=== PATIENT | male | born 1940 | race Caucasian/White ===

== ENCOUNTER 2017-04-16 09:31 | Observation (INO) | payer MEDICARE ==
[2017-04-16] MEDS ORDERED: Aspirin Low Dose CHEW TAB* 81 MG PO ONE (09:43)
[2017-04-16 10:00] LABS: Hematocrit 48 % (42-52); Hemoglobin 15.9 g/dl (14.0-18.0); Mean Corpuscular HGB Conc 33 g/dl (31-36); Mean Corpuscular Hemoglobin 31 pg (27-31); Mean Corpuscular Volume 94 fL (80-94); Mean Platelet Volume 8 um3 (7.4-10.4); Red Blood Count 5.12 10^6/ul (4.0-5.4); Red Cell Distribution Width 13 % (10.5-15); White Blood Count 10.6 10^3/ul (3.5-10.8)
[2017-04-16] MEDS: Nitroglycerin TAB 0.4 MG* 0.4 MG TAB SL ONE ×2 (10:08→10:15)
--- NOTE | 2017-04-16 10:11 | RAD ---
Indication: Chest pain. Single frontal view of the chest performed at 0950 hours was reviewed. Comparison is made with previous exam dated July 18, 2016. No mediastinal shift is noted. Heart is of normal size and configuration. Lung landin appear clear. IMPRESSION: NO ACTIVE CARDIOPULMONARY DISEASE IS NOTED.
[2017-04-16 10:20] LABS: Albumin 3.8 g/dL (3.2-5.2); BUN/Creatinine Ratio 15.8 (8-20); Calcium 8.9 mg/dL (8.6-10.3); EGFR African American 76.1 (>60); EGFR Non-African American 59.2 (>60); Potassium 4.3 mmol/L (3.5-5.0); Total Bilirubin 0.5 mg/dL (0.2-1.0); Total Protein 6.8 g/dL (6.4-8.9)
[2017-04-16] MEDS ORDERED: Nitroglycerin 2% OINT* 1 GM PAK TOPICAL ONE ×2 (10:23→19:09)
[2017-04-16] MEDS ORDERED: Nitroglycerin 2% OINT* 1 GM PAK ONE (10:23)
[2017-04-16] MEDS ORDERED: NS 0.9% 500 ML BAG* 500 ML IV ONE (10:25)
[2017-04-16] MEDS ORDERED: Morphine INJ* 2 MG/ML 1 ML SYRINGE IV ONE (11:08)
[2017-04-16] MEDS ORDERED: Ondansetron INJ* 2 MG/ML VIAL IV ONE (11:08)
[2017-04-16] MEDS ORDERED: Nitroglycerin TAB 0.4 MG* 0.4 MG TAB SL PRN (12:02)
[2017-04-16] MEDS: metFORMIN* 500 MG TAB PO SCH ×2 (13:51→17:50)
[2017-04-16] MEDS: Heparin VIAL(*) 5000 UNITS/ML VIAL (FIVE THOUSAND) SUBCUT SCH ×2 (13:51→22:08)
--- NOTE | 2017-04-16 18:52 | HP ---
CC: Dr. Roderick Gutierrez; Dr. Junior Adrian, Cardiology * DATE OF ADMISSION: 04/16/17 PRIMARY CARE PHYSICIAN: Dr. Roderick Gutierrez. CHIEF COMPLAINT: Chest pain. HISTORY OF PRESENT ILLNESS: Mr. Talon Langston is a 76-year-old male with past medical history of hypertension, diabetes, CAD status post 4 vessel CABG and subsequently PCI with reported 10 stents placed who presents to the hospital with chest pain. The patient states that he and his went down to [facility] on Sunday. They drove down and then Sunday night, he woke up in the middle of the night with left- sided upper chest pain. This pain was sharp and did not seem to radiate for the most part, although when it became more severe perhaps it radiated down the left arm a bit. No associated nausea, vomiting, or diaphoresis. The patient states that pain was short lasting only between 3 to 4 seconds. However, it has been very frequent since then. Frequency has been intermittent, sometimes occurring every 10 seconds or so, sometimes stretching to 10 minutes or more, but it is always brief. He did not take any nitroglycerin at home for it. He has noticed any worsening of this pain with exertion. He initially thought it was muscle pain; however, since it persisted , he spoke to Dr. Adrian's office this morning and was told to come to the hospital for further evaluation. The patient states that in the past during his episodes of ischemia, he either had shortness of breath with exertion or a burning sensation in the chest neither of which is similar to the patient's current pain. PAST MEDICAL HISTORY: Hypertension, diabetes, CAD, status post 4 vessel CABG, and multiple stents placed. PAST SURGICAL HISTORY: CABG, 4 vessel in 1993, and stents placed in 2012. HOME MEDICATIONS: 1. Aspirin 81 mg by mouth at bedtime. 2. Pravastatin 40 mg by mouth at bedtime. 3. Nitroglycerin 0.4 mg sublingual every 5 minutes as needed for angina. 4. Plavix 75 mg by mouth at bedtime. 5. Atenolol 25 mg by mouth at bedtime. 6. Metformin 500 mg by mouth 3 times daily. ALLERGIES: Denies. FAMILY HISTORY: Father who in [place]. Mother at 92 of old age. SOCIAL HISTORY: The patient is a former [id number] smoker for 25 years. He quit 27 years ago, but reports drinking about half a glass of red wine a day. Denies any illicit drug use. REVIEW OF SYSTEMS: A 12-point review of systems is negative except for that as noted in the HPI. PHYSICAL EXAMINATION GENERAL: The patient is an elderly [place] man, lying in bed, in no apparent distress. VITAL SIGNS: On admission, temperature 97.5, heart rate of 62, respiratory rate of 20, O2 saturation 94% on room air, blood pressure 144/79. HEENT: Normocephalic, atraumatic. Eyes: Pupils are equal, round and reactive to light and accommodation. Anicteric sclerae. ENT: Moist mucous membranes. No cervical adenopathy. LUNGS: The patient has some scant faint wheezing diffusely throughout the lung landin; however, good air movement. CARDIOVASCULAR: Bradycardia. No murmurs, gallops, or rubs. ABDOMEN: Nontender, and nondistended. Bowel sounds positive. No rebound or guarding. EXTREMITIES: No cyanosis, clubbing, or edema. NEUROLOGIC: The patient is alert and oriented x3. No focal neurological deficits. SKIN: Warm, dry, and well perfused. LABS AND DIAGNOSTIC: White blood cell count of 10.6, hematocrit of 48, and platelets of 244. Sodium 133, potassium 4.3, chloride of 101, carbon dioxide of 27, BUN of 19, creatinine of 1.2, glucose of 193, lactic acid of 1.1. LFTs are within normal limits. Troponin of 0.00. Chest x-ray personally reviewed shows no acute disease. EKG shows normal sinus rhythm. T-wave inversions in V2 to V3, which are unchanged from August 2016 EKG. The patient's last stress test was August 2015, which was assessed a low risk at that time. ASSESSMENT AND PLAN: Chest pain in a 76-year-old male with a past medical history of hypertension, diabetes, coronary artery disease, status post 4 vessel coronary artery bypass graft and 10 stents placement. 1. Chest pain. The pain does not seem totally consistent with a cardiac etiology, the patient states that he has had atypical presentations in the past. His initial troponin was negative. We will continue to trend this for now. Monitor the patient on telemetry. He does not have any chest pain currently. Dr. Adrian recommended getting a stress test in the morning, which is ordered. He initially had a CTA ordered by the emergency department due to his recent travel to [place]. We will hold off on this for now and we will check a d-dimer instead. We will continue the patient on his home aspirin, statin, and Plavix. 2. Diabetes. Continue home metformin. 3. Hypertension. Continue home atenolol, with hold parameters. 4. DVT prophylaxis. Heparin subcu. 5. Code status. The patient is a full code. TIME SPENT: Total time spent on this admission was 45 minutes, with over half the time spent [id number] with the patient counseling and coordinating care. [id number]/[facility] #: [id number] CHERYLE
[2017-04-16] MEDS ORDERED: Atenolol TAB* 25 MG PO SCH ×2 (21:00)
[2017-04-16] MEDS ORDERED: Clopidogrel TAB* 75 MG PO SCH (21:00)
[2017-04-16] MEDS ORDERED: Atorvastatin* 10 MG TAB PO SCH (21:00)
[2017-04-16] MEDS ORDERED: Aspirin Low Dose CHEW TAB* 81 MG PO SCH (21:00)
[2017-04-17] MEDS: Morphine INJ* 2 MG/ML 1 ML SYRINGE IV PRN ×3 (00:17→08:57)
[2017-04-17 05:16] LABS: BUN/Creatinine Ratio 14.4 (8-20); Calcium 8.5 mg/dL (8.6-10.3); EGFR African American 72.6 (>60); EGFR Non-African American 56.5 (>60); Potassium 4.5 mmol/L (3.5-5.0)
[2017-04-17] MEDS: Heparin VIAL(*) 5000 UNITS/ML VIAL (FIVE THOUSAND) SUBCUT SCH ×2 (05:38→14:19)
[2017-04-17] MEDS ORDERED: Nitro Patch/OINT Remove TOPICAL ONE (07:00)
--- NOTE | 2017-04-17 08:04 | PN ---
Subjective - Subjective Reason for Note: Progress Note History: I reviewed Mr Langston's presentation with the patient and also Dr. Shay's admitting H and P. [facility] the [facility] and developed 2 - 3/10 stabbing , transient left side chest pain. It had worsened yesterday morning and he was admitted to the hospital at the suggestion of his group underwriter Dr. Adrian. He had 7/10 pain overnight necessitating morphine. When the morphine wears off, the pain returns. He has had no nausea, vomiting, diaphoresis, radiation of the pain, light headedness or palpitations. He has a history of CABG x4 1993 and 3 years ago x 10 stents placed. He denies eating spicy food or drinking alcohol in [facility]. Active Problems: Active Problems Chest pain (Acute) R07.9 History of coronary artery stent placement (Chronic) Z95.5 Current Medications: Current Medications Aspirin (Aspirin Low Dose Tab*) 81 mg PO BEDTIME [facility] Last Admin: 04/17/17 00:28 Dose: Not Given Atenolol (Tenormin Tab*) 25 mg PO BEDTIME [facility] Last Admin: 04/17/17 00:29 Dose: Not Given Atorvastatin Calcium (Lipitor*) 10 mg PO BEDTIME [facility] PRN Reason: Protocol Last Admin: 04/16/17 20:52 Dose: 10 mg Clopidogrel Bisulfate (Plavix Tab*) 75 mg PO BEDTIME [facility] Last Admin: 04/17/17 00:29 Dose: Not Given Heparin Sodium (Porcine) (Heparin Vial(*)) 5,000 units SUBCUT Q8HR [facility] Last Admin: 04/17/17 05:38 Dose: 5,000 units Metformin HCl (Glucophage*) 500 mg PO TID WITH MEALS [facility] Last Admin: 04/16/17 17:50 Dose: 500 mg Morphine Sulfate (Morphine Inj (Syringe)*) 2 mg IV Q4H PRN PRN Reason: PAIN - MILD Last Admin: 04/17/17 04:43 Dose: 2 mg Nitroglycerin (Nitroglycerin Tab 0.4 Mg*) 0.4 mg SL Q5M PRN PRN Reason: chest pain Home Medications: Home Medications Medication Instructions Recorded Confirmed Type Atenolol TAB* [Tenormin TAB* 25 MG] 25 mg PO BEDTIME 01/30/13 04/16/17 History Aspirin Low Dose CHEW TAB* 81 mg PO BEDTIME 05/01/14 04/16/17 History [Aspirin Low Dose TAB*] Clopidogrel TAB* [Plavix TAB*] 75 mg PO BEDTIME 09/28/14 04/16/17 History metFORMIN* [Glucophage*] 500 mg PO TID 09/28/14 04/16/17 History Nitroglycerin TAB 0.4 MG* 0.4 mg SL Q5M PRN 08/23/15 04/16/17 History Pravastatin (NF) [Pravachol (NF)] 40 mg PO BEDTIME 04/16/17 04/16/17 History Allergies: Allergies Allergy/AdvReac Type Severity Reaction Status Date / Time Niacin [From [facility]] Allergy Unknown Unknown Verified 09/01/15 12:14 Reaction Details SEASONAL HAYFEVER Allergy ITCHY Uncoded 09/01/15 12:14 WATERY EYES Objective - Vital Signs Vital Signs: Vital Signs 04/16/17 04/16/17 04/16/17 11:25 11:30 12:39 Temperature Pulse Rate 45 46 Respiratory 13 17 23 Rate Blood Pressure 127/53 104/62 (mmHg) O2 Sat by Pulse 97 99 Oximetry 04/16/17 04/16/17 04/16/17 12:40 12:43 12:50 Temperature 97.9 F Pulse Rate 45 Respiratory 11 15 10 Rate Blood Pressure 114/55 (mmHg) O2 Sat by Pulse 100 Oximetry 04/16/17 04/16/17 04/16/17 13:00 13:10 13:20 Temperature Pulse Rate Respiratory 14 21 12 Rate Blood Pressure (mmHg) O2 Sat by Pulse Oximetry 04/16/17 04/16/17 04/16/17 13:30 13:40 13:50 Temperature Pulse Rate Respiratory 12 11 13 Rate Blood Pressure (mmHg) O2 Sat by Pulse Oximetry 04/16/17 04/16/17 04/16/17 14:00 14:10 14:20 Temperature Pulse Rate Respiratory 10 10 12 Rate Blood Pressure (mmHg) O2 Sat by Pulse Oximetry 04/16/17 04/16/17 04/16/17 14:30 14:40 14:50 Temperature Pulse Rate Respiratory 11 9 12 Rate Blood Pressure (mmHg) O2 Sat by Pulse Oximetry 04/16/17 04/16/17 04/16/17 15:00 15:10 15:20 Temperature Pulse Rate Respiratory 11 13 15 Rate Blood Pressure (mmHg) O2 Sat by Pulse Oximetry 04/16/17 04/16/17 04/16/17 15:30 15:40 15:48 Temperature 97.5 F Pulse Rate 46 Respiratory 14 11 12 Rate Blood Pressure 119/63 (mmHg) O2 Sat by Pulse 97 Oximetry 04/16/17 04/16/17 04/16/17 15:50 16:30 16:40 Temperature Pulse Rate Respiratory 22 11 11 Rate Blood Pressure (mmHg) O2 Sat by Pulse Oximetry 04/16/17 04/16/17 04/16/17 16:50 17:00 17:10 Temperature Pulse Rate Respiratory 9 7 11 Rate Blood Pressure (mmHg) O2 Sat by Pulse Oximetry 04/16/17 04/16/17 04/16/17 17:20 17:30 17:40 Temperature Pulse Rate Respiratory 12 30 16 Rate Blood Pressure (mmHg) O2 Sat by Pulse Oximetry 04/16/17 04/16/17 04/16/17 19:18 23:35 23:47 Temperature 97.2 F 98.1 F 98.4 F Pulse Rate 54 52 52 Respiratory 16 16 18 Rate Blood Pressure 113/62 110/53 105/48 (mmHg) O2 Sat by Pulse 97 96 95 Oximetry 04/17/17 04/17/17 04/17/17 00:17 01:17 03:34 Temperature 98.2 F Pulse Rate 48 Respiratory 18 18 16 Rate Blood Pressure 117/57 (mmHg) O2 Sat by Pulse 96 Oximetry 04/17/17 04/17/17 04:43 05:43 Temperature Pulse Rate Respiratory 16 18 Rate Blood Pressure (mmHg) O2 Sat by Pulse Oximetry - Intake and Output Intake and Output: Intake & Output 04/14/17 04/15/17 04/16/17 04/17/17 11:59 11:59 11:59 11:59 Intake Total 400 Output Total 0 Balance 400 Weight 127 lb 12.8 oz Intake: Oral 400 Output: Urine 0 Other: Estimated Void Medium # Bowel Movements 0 # Voids 0 ADLs: Meal Record Start: 04/16/17 12: 03 Freq: DAILY@0900,1400,1800 Status: Active Created 04/16/17 12:03 System (Rec: 04/16/17 12:03 System [email or web address]) Document 04/16/17 14:00 [id number] (Rec: 04/16/17 14:18 [id number] TELE-C13) Document 04/16/17 18:00 [id number] (Rec: 04/16/17 20:17 [id number] TELE-C03) Intake and Output Start: 04/16/17 09: 34 Freq: Status: Active Created 04/16/17 09:34 System (Rec: 04/16/17 09:34 System [id number]) Intake and Output Start: 04/16/17 12: 03 Freq: DAILY@0600,1400,2200 Status: Active Created 04/16/17 12:03 System (Rec: 04/16/17 12:03 System TELE-C02) Document 04/16/17 14:00 [id number] (Rec: 04/16/17 14:57 [id number] TELE-C05) Document 04/16/17 22:00 [id number] (Rec: 04/16/17 22:48 [id number] TELE-C05) Document 04/17/17 06:00 [id number] (Rec: 04/17/17 07:37 [id number] TELE-C13) - Physical Exam General Physical Exam Comment: Warm and well perfused, hemodynamically stable General: No Cyanosis, No Anemia, No Jaundice, No Clubbing Skin: Normal: Rash Lungs and Chest: Yes: Chest Expansion Full, Chest Expansion Symetrica, Percussion Note Resonant, Vessicular Breath Sounds. No: Crackles, Wheezes Heart Rate and Rhythm: Regular JVP: Not Elevated Additional Cardiovascular: Yes: Normal Heart Sounds. No: Heart Murmur, Pedal Edema Abdominal Exam: Yes: Soft, Bowel Sounds Present. No: Distention, Abdominal Mass , Hepatomegaly, Abdominal Tenderness - Extremities Cranial Nerves II-XII Intact: Yes Limbs: Normal Power, Normal Tone - Neuro Orientation: A/O x3 Speech: Normal Results - Results Lab Results: Laboratory Results - last 24 hr 04/16/17 04/16/17 04/17/17 13:12 17:57 04:57 Sodium 136 Potassium 4.5 Chloride 104 Carbon Dioxide 31 Anion Gap 1 L BUN 18 Creatinine 1.25 H Est GFR ( Amer) 72.6 Est GFR (Non-Af Amer) 56.5 BUN/Creatinine Ratio 14.4 Glucose 142 H Calcium 8.5 L Troponin I 0.00 0.01 Radiology Results: Patient Name: DARRON LANGSTON Medical Record#: [id number] Ordering Physician: Rafael Almaraz MD Acct.#: [id number] : 1940 Age: 76 Sex: M Location: EMERGENCY DEPARTMENT Exam Date: 04/16/17 0943 ADM Status: REG ER Order Information: CHEST AP PORTABLE Accession Number: [id number] CPT: 36018 Indication: Chest pain. Single frontal view of the chest performed at 0950 hours was reviewed. Comparison is made with previous exam dated July 18, 2016. No mediastinal shift is noted. Heart is of normal size and configuration. Lung landin appear clear. IMPRESSION: NO ACTIVE CARDIOPULMONARY DISEASE IS NOTED. <Electronically signed by Ivis Houston MD in OV> 04/16/17 1008 Dictated By: Ivis Houston MD Dictated Date/Time: 04/16/17 1008 Transcribed Date/Time: 04/16/17 1007 Copy to: CC:Roderick Gutierrez MD; Rafael Almaraz MD Imaging - [facility] Imaging - [place] [facility] [address] [place] [address] ph [phone]) ph ([phone]) ph ([phone]) 1 of 1 EKG Report: 12 lead EKG rate 60 LA 173 QTC 457 QRS axis 83 T wave assymetrical inversion V2 - V6, I and AVL. No pathological Q waves. ST segment normal. Anterolateral ischemia. Telemetry - sinus bradycardia Assessment - Problem List Assessment: Patient Problems Chest pain (Acute) History of coronary artery stent placement (Chronic) Allergic asthma (Chronic) Chronic kidney disease stage 2 (Chronic) Coronary arteriosclerosis (Chronic) Coronary artery bypass grafting (Chronic) Diabetes mellitus type 2 (Chronic) Essential hypertension (Chronic) Hypercholesterolemia (Chronic) Renal disorder associated with type II diabetes mellitus (Chronic) Plan: Chest pain (Acute) History of coronary artery stent placement (Chronic) Coronary arteriosclerosis (Chronic)Coronary artery bypass grafting (Chronic) He presents with chest pain that is becoming more severe and now requires morphine for control. There are no particularly symptomatic accompaniments - no radiation, diaphoresis, nausea, dysrhythmias. In the past he notes that stress tests have not been particularly revealing. I discussed this with cardiology. The plan is to perform the stress test in case it helps inform us as to the likely involved coronary artery territory. If the stress test is negative, cardiology will consult and likely will go ahead with an angiogram as the patient would prefer that approach to obtain anatomic information. He agrees with this management plan. He will need resolution of the chest pain should CAD be ruled out. I would look at the possibility of esophagitis. Diabetes mellitus type 2 (Chronic) Well controlled on metformin. I will stop this for the moment in view of the likelihood of his requiring IV contrast with a cardiac catheter. He will have FS checked qid. I will give him coverage with humalog insulin if his FS is elevated. Renal disorder associated with type II diabetes mellitus (Chronic) Chronic kidney disease stage 2 (Chronic)not exacerbated Essential hypertension (Chronic) on target - continue current Rx Hypercholesterolemia (Chronic) Statins Allergic asthma (Chronic) Not exacerbated I discussed the above with the patient and he agrees with the management.
[2017-04-17] MEDS: metFORMIN* 500 MG TAB PO SCH (08:05)
[2017-04-17] MEDS ORDERED: Dextrose 50% Syringe 50 ML* 25 GM/50 ML SYRINGE IV PUSH PRN (08:17)
--- NOTE | 2017-04-17 10:27 | ED ---
Audie Hinson Auryana, scribed for Rafael Almaraz MD on 04/16/17 at 1050 . HPI Chest Pain - HPI Summary HPI Summary: 76 year old male presents with chest pain starting 2.5 days ago. He reports that the chest pain is constant but is intermittently worse every 10-30 seconds. The pain is located in the left side of the chest and does not radiate. He denies any SOB. Patient reports that with his previous DE, he had minimal symptoms - DODSON. PMHx is significant for NSTEMI, quadruple CABG with 10 stent placement, NIDDM, and HTN. Dr. Adrian is his rn anesthesiology. 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 - History of Current Complaint Chief Complaint: EDChestPainROMI Time Seen by Provider: 04/16/17 09:43 Hx Obtained From: Patient Onset/Duration: Started Days Ago - 2.5 days ago, Still Present Timing: Constant, Intermittent - intermittently worse Initial Severity: Mild Current Severity: Mild Pain Intensity: 3 Pain Scale Used: 0-10 Numeric Chest Pain Location: Discrete at: - left side of chest Chest Pain Radiates: No Associated Signs and Symptoms: Positive: Chest Pain. Negative: Shortness of Breath Related History: Similar Episode/Dx as: - YES SEE HPI - Allergy/Home Medications Allergies/Adverse Reactions: Allergies Allergy/AdvReac Type Severity Reaction Status Date / Time Niacin [From [facility]] Allergy Unknown Unknown Verified 09/01/15 12:14 Reaction Details SEASONAL HAYFEVER Allergy ITCHY Uncoded 09/01/15 12:14 WATERY EYES Home Medications: Home Medications Pravastatin (NF) [Pravachol (NF)] 40 mg PO BEDTIME 04/16/17 [History Confirmed 04/16/17] PMH/Surg Hx/FS Hx/Imm Hx Endocrine/Hematology History: Reports: Hx Diabetes - metformin Denies: Hx Thyroid Disease, Hx Anemia Cardiovascular History: Reports: Hx Angina, Hx Coronary Artery Disease, Hx Hypercholesterolemia, Hx Hypertension Denies: Hx Pacemaker/ICD Respiratory History: Reports: Hx Asthma, Hx Chronic Bronchitis, Hx Pneumonia, Hx Seasonal Allergies, Other Respiratory Problems/Disorders - SEASONAL ALLERGIES Denies: Hx Sleep Apnea GI History: Denies: Hx Jaundice History: Reports: Other Problems/Disorders - RENAL INSUFFICIENCY Sensory History: Reports: Hx Cataracts - Had sx on left eye, Hx Contacts or Glasses Denies: Hx Eye Injury, Hx Hearing Aid Opthamlomology History: Reports: Hx Cataracts - Had sx on left eye, Hx Contacts or Glasses Denies: Hx Eye Injury Neurological History: Denies: Hx Seizures - Surgical History Surgery Procedure, Year, and Place: left cataract 2003. bypass 1993. cardiac stents Hx Anesthesia Reactions: No - Immunization History Date of Tetanus Vaccine: Unk Date of Influenza Vaccine: Fall 2012 Infectious Disease History: Reports: History Other Infectious Disease - pneumonia 2 weeks ago Denies: Hx Tuberculosis, Traveled Outside the [place] in Last 30 Days - Family History Known Family History: Negative: Cardiac Disease, Diabetes - Social History Occupation: Retired Alcohol Use: Daily Alcohol Amount: 4 oz red wine Hx Substance Use: No Substance Use Type: Reports: None Hx Tobacco Use: Yes Smoking Status (MU): Former Smoker Type: Cigarettes Amount Used/How Often: 0.5 pack per day Length of Time of Smoking/Using Tobacco: 30 Have You Smoked in the Last Year: No Review of Systems Constitutional: Negative Negative: Fever, Chills Eyes: Negative Negative: Erythema ENT: Negative Negative: Sore Throat Positive: Chest Pain Respiratory: Negative Negative: Shortness Of Breath, Cough Gastrointestinal: Negative Negative: Abdominal Pain, Vomiting, Nausea Genitourinary: Negative Positive: no symptoms reported. Negative: dysuria, hematuria Musculoskeletal: Negative Negative: Myalgia, Edema Skin: Negative Negative: Rash Neurological: Negative, Other - no dizziness Psychological: Normal All Other Systems Reviewed And Are Negative: Yes Physical Exam - Summary Physical Exam Summary: Constitutional: Well-developed, Well-nourished, Alert. (-) Distressed Skin: Warm, Dry HENT: Normocephalic; Atraumatic Eyes: Conjunctiva normal Neck: Musculoskeletal ROM normal neck. (-) JVD, (-) Stridor, (-) Tracheal deviation Cardio: Rhythm regular, rate normal, Heart sounds normal; Intact distal pulses; The pedal pulses are 2+ and symmetric. Radial pulses are 2+ and symmetric. (-) Murmur Pulmonary/Chest wall: Effort normal. (-) Respiratory distress, (-) Wheezes, (-) Rales Abd: Soft, (-) Tenderness, (-) Distension, (-) Guarding, (-) Rebound Musculoskeletal: (-) Edema Lymph: (-) Cervical adenopathy Neuro: Alert, Oriented x3 Psych: Mood and affect Normal Triage Information Reviewed: Yes Vital Signs On Initial Exam: Initial Vitals Temp Pulse Resp BP Pulse Ox 97.5 F 62 20 144/79 94 04/16/17 09:32 04/16/17 09:32 04/16/17 09:32 04/16/17 09:32 04/16/17 09:32 Vital Signs Reviewed: Yes Diagnostics - Vital Signs Vital Signs Temp Pulse Resp BP Pulse Ox 04/16/17 09:32 97.5 F 62 20 144/79 94 - Laboratory Result Diagrams: 04/16/17 09:00 04/16/17 09:00 Lab Statement: Any lab studies that have been ordered have been reviewed, and results considered in the medical decision making process. - Radiology CXR Xray Interpretation: No Acute Changes Radiology Interpretation Completed By: Radiologist - EKG 09:39 EKG Interpretation: T wave inversions in V2-V6. No STEMI. Re-Evaluation - Re-Evaluation First Eval Re-Evaluation Time: 11:05 - PAIN IS STILL A 12/01 Change: Unchanged Chest Pain Course/Dx - Course Assessment/Plan: 76 year old male presents with chest pain starting 2.5 days ago. He reports that the chest pain is constant but is intermittently worse every 10-30 seconds. The pain is located in the left side of the chest and does not radiate. He denies any SOB. Patient reports that with his previous DE, he had minimal symptoms - DODSON. PMHx is significant for NSTEMI, quadruple CABG with 10 stent placement, NIDDM, and HTN. Dr. Adrian is his rn anesthesiology. 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 Blood work shows creatinine 1.20, glucose 193, lactic acid 1.1, and troponin 0.00. D-Dimer <200. LFTs are WNL. CXR NAD. EKG T wave inversions in V2-V6. No STEMI. The case discussed the case with Dr. Adrian who recommends admission for stress test if the pain waxes and wanes. The case was discussed with Dr. Gutierrez (PCP) who also recommends admission. Dr. Shay accepts the patient for admission to [facility]. Patient is agreeable with plan. DDx ACS, reflux, muscle strain. Dx: chest pain unspecified. - Chest Pain Differential Diagnosis/HQI/PQRI: ACS, Other: - muscle strain, reflux - Diagnoses Provider Diagnoses: Chest pain, unspecified - Provider Notifications Discussed Care Of Patient With: Junior Adrian Time Discussed With Above Provider: 10:55 - if pain wax and wanes, recommends admission to hospital for stress test. Discharge - Discharge Plan Condition: Stable Disposition: ADMITTED TO [facility] The documentation as recorded by the Audie cardenas Auryana accurately reflects the service I personally performed and the decisions made by , Rafael Almaraz MD.
--- NOTE | 2017-04-17 10:54 | RAD ---
HISTORY: Chest pain, history of coronary artery disease, cardiac catheterization, diabetes COMPARISONS: August 24, 2015 TECHNIQUE: A 1 day stress/rest myocardial perfusion study was performed, with exercise stress. The exercise portion was performed using the Daniel protocol, for a total METs of 10.1. The stress portion was monitored by Dr. Woody. Gated SPECT imaging was performed, with CT-based attenuation correction DOSE: Stress: Technetium 99m tetrofosmin, 26.2 millicuries, injected at 9:50 AM on April 17, 2017 Rest: Technetium 99m tetrofosmin, 10.99 millicuries, injected at 6:25 AM on April 17, 2017 Pharmacologic agent: None FINDINGS: CARDIAC MONITORING: Peak heart rate of 140 bpm, 96% of predicted EF: 61 % TID: 1.06 MOTION: Again noted is anteroseptal hypokinesia PERFUSION: There is a small fixed apical defect. There is no reversible perfusion defect. OTHER: None IMPRESSION: 1. PERSISTENT ANTEROSEPTAL HYPOKINESIA. 2. SMALL FIXED APICAL DEFECT SUGGESTIVE OF PREVIOUS INFARCT. NO REVERSIBLE DEFECTS TO SUGGEST ISCHEMIA ASSESSMENT: LOW RISK. Based on imaging criteria from ACC/AHA 2002. Guideline Update for the Management of Patient's with Chronic Stable Angina, table 23. Noninvasive Risk Stratification.
[2017-04-17] MEDS ORDERED: Insulin LISPRO* 1 UNITS UNIT SUBCUT SCH (11:30)
[2017-04-17] MEDS ORDERED: amLODIPine TAB* 5 MG PO SCH (14:00)
--- NOTE | 2017-04-17 14:31 | PN ---
Progress Note - Progress Note Date of Service: 04/17/17 Note: The nuclear medicine stress test suggest a low risk of ischemia. I spoke with Dr. Junior Adrian - in view of the chest pain for several days and the negative troponin I/stress test - it is unlikely to be due to ischemic heart disease. I will explore the possibility of GERD as an out patient. Dr. Adrian thinks he is safe to discharge home from the cardiac point of view. I spoke to Giuliana, the RN on duty, she has walked him and he has felt well. I have therefore written discharge orders.
[2017-04-17 15:17] VITALS: BP 118/59
--- NOTE | 2017-04-17 16:02 | CONS ---
CC: Dr. Roderick Gutierrez.* CARDIOLOGY CONSULTATION: DATE OF CONSULT: 04/17/17 REASON FOR THE CONSULT: Asked by Dr. Roderick Gutierrez to assess patient known to me with atypical left-sided chest discomfort. HISTORY OF PRESENT ILLNESS: The patient is a pleasant 76-year-old gentleman with a prior known history of coronary artery disease, which will be outlined below, status post bypass surgery and multiple stents placed. According to the patient, he was in his usual state of health without any significant symptoms until this past Sunday night into Sunday. He was at his son's house in [facility]. While he was lying in bed, he believes perhaps around 12 midnight or 2 in the morning, in a lying position he woke up and felt a chest discomfort. It was focused to the upper left side of the chest with no radiation to the mid portion of the chest, no radiation across to the right side, no radiation up to the throat, jaw or up to the shoulder or arms. The description of the discomfort with a pinching, stabbing sensation that would come on for a couple of seconds, then completely go away. It would return after some time, several seconds or minutes. He stated that this would be on and off throughout the night. He did not describe having any significant shortness of breath with the discomfort. To me, he denied any significant nausea or vomiting with these episodes, any profound diaphoresis. In general, he thought they were mild in nature. He was eventually able to go to sleep, but on Sunday he woke up and found that he still had some mild episodes of this. He tried doing some stretching activity. It was not better. He tried to actually take a warm shower and it did not seem to be better with exerting himself. During this shower, he had no change to the symptoms and with him walking around within the house, had no problems. Interestingly, it was on and off throughout all of Sunday. He actually drove all the way home back up to [place] and states that when he concentrated driving , he really did not notice this symptom. He went to bed on Sunday night into Sunday and was awakened with an increased level of the discomfort, somewhat sharper perhaps as a 6-8/10, but again with that intermittent pattern of lasting a couple of seconds at a time, then completely going away, then returning. Because of the symptomatology, he ended up presenting to the emergency room. He presented to the emergency room on 04/16/17 by car arriving at 9:30 a.m. He called our office and was referred by our nurse to go to the emergency room and asked that he seek medical attention by presenting to the emergency room. The emergency room physician examined him and agreed that it was atypical in nature, but saw an EKG that had T-wave inversions in anterior leads and anterolateral leads. I was able to fax him an EKG from my office from August that showed the exact same EKG findings unchanged. The patient was subsequently admitted to the hospital and over the course of the next 24 hours had troponins that were valued at 0.00, 0.00, and 0.01. He states that while he was in the hospital, the level of symptoms actually got worse again when he was at night, sharper in nature, last night at about 12 a.m. to 1 in the morning. He received morphine for this. It got better, but became sharp again at 5 a.m. According to the patient, he got additional dosages of morphine at that time as well. Prior to going down to the stress test, he was given additional morphine. He exercised by standard Daniel protocol under Dr. Eloy Woody's observation to 9 minutes 17 seconds. He had the discomfort before even starting the stress test. Interestingly, when I spoke to him, he denied having any discomfort with the exercise. The EKG was difficult at best to assess because of baseline ST segment abnormalities and artifact on the tracings with exercise due to motion artifact. The one minute recovery EKG had upsloping ST segments that did not meet any type of criteria. Later in recovery, the ST segments became more downsloping in II, III and aVF and V4 through 6. Of note, this was still at a faster heart rate. The nuclear images showed well preserved left ventricular systolic function with an ejection fraction recorded of 61%. There was septal hypokinesis consistent with prior bypass. There was a question of a very small fixed apical defect which Radiology suggested perhaps represents a previous infarct, but overall left ventricular contractility to that area showed completely normal LV function suggesting this was more physiological thinning of the apical region. The alternative would be a very small area of ischemia at best. Nuclear portion was read as a low risk nuclear portion of the stress test. In talking more with the patient, he continued to state that he denied any specific difficulties going up and down the stairs at home provoking these very transient type of symptoms. The patient's cardiac history is extensive in nature. He is status post heart disease dating back to 1993 when he underwent bypass surgery with a NICKERSON graft to the LAD, a vein graft to the diagonal branch, a vein graft to the obtuse marginal #2 and a vein graft to the distal right coronary artery. In 2012, he had a cardiac catheterization demonstrating LAD and circumflex with severe stenosis, right coronary artery coming off from the left coronary cusp with a 60 % lesion, saphenous vein to the right totally occluded, saphenous vein graft to the diagonal totally occluded, saphenous vein to an OM widely patent and a NICKERSON widely patent. In 2013, he had significant chest discomfort for prolonged period of time and a troponin of 4 and underwent cardiac catheterization that at that time demonstrated the 100% LAD after the first septal. The circumflex was 100% closed. The right coronary artery was 100% closed. Saphenous vein to the right coronary artery was totally occluded, which was known already. Saphenous vein to the diagonal branch was 100% occluded that was known already. The saphenous vein to the obtuse marginal branch was a 100% obstructed, which was a new finding with a patent NICKERSON to the LAD, but after the insertion point, the LAD was a 75% obstruction. Of note, the right coronary artery being felt to be 100% obstructed, which actually later proved to be wrong as the right coronary artery came off from the left coronary cusp with an ectopic takeoff. As such, the presence of severe disease within the right coronary artery in addition to the LAD was noted. During the prior catheterization, a stent was placed in the ostium of the vein graft to the obtuse marginal branch. The patient subsequently then underwent intervention into the right coronary artery in [facility] by Dr. Powell with placement of 4 drug-eluting stents through the ectopic takeoff. The LAD was then intervened in May of 2014 with placement of multiple stents in the LAD back into the NICKERSON graft. As mentioned before, since that time till this past Sunday, there were no significant symptoms. 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 He has also a history of mild aortic regurgitation, hyperlipidemia, mild mitral regurgitation, and tricuspid regurgitation as well, he has type 2 diabetes. PAST SURGICAL HISTORY: Includes the coronary artery bypass surgery in 1993 as mentioned and multiple stents placed back in 2013. HOME MEDICATIONS: Included aspirin 81 mg a day, pravastatin 40 mg a day, nitroglycerin as needed, Plavix 75 mg a day, atenolol 25 mg a day, metformin 500 mg 3 times a day. ALLERGIES: No known drug allergies. FAMILY HISTORY: Noncontributory. SOCIAL HISTORY: He is a former half a pack a day smoker, but quit 27 years ago. He drinks wine half a glass a day. No illicit drugs. REVIEW OF SYSTEMS: As per the H and P with no change. PHYSICAL EXAMINATION: When I see him now, reveals a pleasant stable gentleman in no acute distress. Blood pressure 135/65 with the pulse in the 70s. Neck is supple. No increased JVP. Carotid has good upstroke and volume. There are no bruits or transmitted murmur. Conjunctivae are pink. Sclerae clear. Lungs reveal no accessory muscle usage. There is good excursion. Lungs are relatively clear to A and P. Heart reveals no visible heaves. No palpable heaves or thrills. Bradycardic rate is noted. No significant systolic or diastolic murmur. Abdomen is soft, nontender without organomegaly. Extremities are without clubbing, cyanosis, or yocasta pitting edema. Neuro: The patient alert, oriented with normal mentation. Musculoskeletal: The patient with normal gait. Psychiatric: The patient with normal affect. Of note, provocative maneuvers including pressing on the left upper chest area having him tense his left arm pushing it in different directions to see we can provoke, it failed to produce any symptom. DIAGNOSTIC STUDIES/LAB DATA: Hemoglobin and hematocrit of 15.9 and 48, platelet count of 244,000. White count 10,600. Most recent sodium 136, potassium 4.5, chloride 104, bicarb 31, BUN and creatinine 18 and 1.25. Troponin 0.00, 0.00, and 0.01. Lactic acid was 1.1. Sugar on admission was 193. Fasting sugar this morning was 142. Electrocardiogram dated 04/16/17 timed 9:39 a.m. shows sinus bradycardia, heart rate 60, normal DC, QRS and QT interval. There is a T-wave inversion seen in V2 through V6, I and aVL. Repeat EKG done this morning shows no significant change except for more bradycardic rate. OVERALL ASSESSMENT: Mr. Langston now presents with what clearly sounds like atypical chest symptoms in that they last seconds at a time with clear periods of no discomfort in between. They are focused to a spot in the left chest area without any radiation or without any significant associated type of symptoms. He denies having any type of a true burning sensation that he had with his other episodes in the past or significant shortness of breath with this. His stress test showed a fair to good exercise tolerance level without significantly worsening symptoms and with no dramatic nuclear findings to suggest even a moderate area of reversible ischemia. At this point in time, I honestly do not believe this is of an ischemic etiology. Given his current medications, we could opt to place a low dose of a calcium channel kriss such as Norvasc 2.5 mg a day to see how he fares on that and see if that has really any help in improvement. If he is stable on that medication within the next couple hours, I believe he can be discharged home with followup to my office. One other consideration knowing that these symptoms occur at night and are brief meaning seconds in nature would be if he starts developing any arrhythmic issues such as PVCs that could be escape beats if his heart rate gets too low. We will get a Holter monitor on him for 24 hours and see if we notice any significant arrhythmias that could account for this as well. As always, thank you very much for having asked me to see him. I will of course follow him along with you both in the hospital and as an outpatient. [id number]/[facility] #: [id number] CHERYLE
== END 2017-04-17 15:43 | disposition home or self-care (01) ==
LOC: ED 09:31 → MEDTELE 11:24
PROVIDERS: ADMIT Hospitalist; ATTEND Internal Medicine
DX: R07.9 Chest pain, unspecified (principal); E11.9 Type 2 diabetes mellitus without complications; I10 Essential (primary) hypertension; I25.119 Atherosclerotic heart disease of native coronary artery with unspecified angina pectoris; E78.00 Pure hypercholesterolemia, unspecified; R94.31 Abnormal electrocardiogram [ECG] [EKG]; Z79.82 Long term (current) use of aspirin; Z79.01 Long term (current) use of anticoagulants; Z79.84 Long term (current) use of oral hypoglycemic drugs; Z79.899 Other long term (current) drug therapy; Z87.891 Personal history of nicotine dependence; Z88.8 Allergy status to other drugs, medicaments and biological substances
CPT/HCPCS: 36415; 71010; 78452; 80048; 80053; 83605; 84484; 85025; 85379; 93005; 93017; 96372; 96374; 96375; 96376; 99284; A9270-GY; A9502; G0378; J1644; J2270; J2405

== ENCOUNTER 2017-04-18 20:29 | Emergency (ER) | payer MEDICARE ==
[2017-04-18] MEDS ORDERED: NS 0.9% 1000 ML* 1,000 ML IV ONE (22:47)
[2017-04-18] MEDS ORDERED: Morphine INJ* 4 MG/ML 1 ML SYRINGE IV ONE (22:47)
[2017-04-18] MEDS ORDERED: Aspirin Low Dose CHEW TAB* 81 MG PO ONE (22:47)
[2017-04-18 23:07] LABS: Hematocrit 43 % (42-52); Hemoglobin 14.2 g/dl (14.0-18.0); Mean Corpuscular HGB Conc 33 g/dl (31-36); Mean Corpuscular Hemoglobin 31 pg (27-31); Mean Corpuscular Volume 95 fL (80-94); Mean Platelet Volume 8 um3 (7.4-10.4); Red Blood Count 4.57 10^6/ul (4.0-5.4); Red Cell Distribution Width 13 % (10.5-15); White Blood Count 9.6 10^3/ul (3.5-10.8)
[2017-04-18 23:09] LABS: Comments Flag Yes
[2017-04-18 23:12] LABS: Add Diff/Slide Review? Slide Review Added
[2017-04-18 23:23] LABS: Albumin 3.4 g/dL (3.2-5.2); BUN/Creatinine Ratio 18.5 (8-20); Calcium 8.7 mg/dL (8.6-10.3); EGFR African American 76.9 (>60); EGFR Non-African American 59.8 (>60); Globulin 2.8 g/dL (2-4); Magnesium 2.1 mg/dL (1.9-2.7); Total Bilirubin 0.3 mg/dL (0.2-1.0); Total Protein 6.2 g/dL (6.4-8.9)
[2017-04-18 23:26] LABS: Potassium 4.4 mmol/L (3.5-5.0)
[2017-04-18 23:34] LABS: Eosinophils % 2 % (0-6); Immature Granulocytes 3 % (0-9); Neutrophil % 68 % (38-83); Reactive Lymph % 7 % (0-6)
[2017-04-18 23:35] LABS: RBC Morphology Normal (Normal)
[2017-04-19] MEDS ORDERED: oxyCODONE/Acetamin 5/325 MG* TAB PO ONE (02:33)
[2017-04-19 02:51] VITALS: BP 110/57
--- NOTE | 2017-04-19 05:05 | ED ---
Mikhail Hinson Alok, scribed for Augusto Madison MD on 04/18/17 at 2310 . HPI Chest Pain - HPI Summary HPI Summary: 76M presents to the ED for recurring left sided CP since 4 days ago. Pt state his CP is sharp and radiates to the left shoulder, with interment intervals lasting 10 seconds to 10 minutes constantly reoccurring every few minutes and waxing and waning in intensity. Pt states his CP is not aggravated by deep breaths or upright position. Pt was last here 2 days ago with the same CP and was admitted/released after negative stress test. Pt states his CP was alleviated with IV morphine administered at [facility]. Pt states that his CP was worst 2 days ago at a 7/10 in severity and is currently at the same pain level again. Pt denies SOB, nausea, abd pain, diaphoresis, or edema. PMHx/PSHx includes h/o NM 23 years ago with no preceding symptoms followed by quadruple bypass surgery. Pt later had 10 cardiac stents placed approximately 3 years ago following burning CP different than sharp CP today. Additional PMHx includes HTN , and Type II DM. Pt takes anticoagulant medications. - History of Current Complaint Chief Complaint: EDChestPainROMI Time Seen by Provider: 04/18/17 22:01 Hx Obtained From: Patient Onset/Duration: Started Days Ago, Atraumatic, Still Present Timing: Intermittent, Lasting Seconds, Lasting Minutes Initial Severity: Moderate Current Severity: Moderate Pain Intensity: 7 Pain Scale Used: 0-10 Numeric Chest Pain Location: Left Anterior Chest Pain Radiates: Yes Chest Pain Radiates To:: Shoulder Character: Sharp/Stabbing Aggravating Factor(s): Nothing Alleviating Factor(s): Medication - Morphine Associated Signs and Symptoms: Positive: Chest Pain. Negative: Shortness of Breath, Fever, Diaphoresis, Nausea, Abdominal Pain, Edema - Allergy/Home Medications Allergies/Adverse Reactions: Allergies Allergy/AdvReac Type Severity Reaction Status Date / Time Niacin [From Niaspan] Allergy Unknown Unknown Verified 09/01/15 12:14 Reaction Details SEASONAL HAYFEVER Allergy ITCHY Uncoded 09/01/15 12:14 WATERY EYES PMH/Surg Hx/FS Hx/Imm Hx Endocrine/Hematology History: Reports: Hx Diabetes - metformin Denies: Hx Thyroid Disease, Hx Anemia Cardiovascular History: Reports: Hx Angina, Hx Coronary Artery Disease, Hx Hypercholesterolemia, Hx Hypertension Denies: Hx Myocardial Infarction, Hx Pacemaker/ICD, Hx Valvular Heart Disease Respiratory History: Reports: Hx Asthma, Hx Chronic Bronchitis, Hx Pneumonia, Hx Seasonal Allergies, Other Respiratory Problems/Disorders - SEASONAL ALLERGIES Denies: Hx Chronic Obstructive Pulmonary Disease (COPD), Hx Sleep Apnea GI History: Denies: Hx Jaundice History: Reports: Other Problems/Disorders - RENAL INSUFFICIENCY Sensory History: Reports: Hx Cataracts - Had sx on left eye, Hx Contacts or Glasses Denies: Hx Eye Injury, Hx Hearing Aid Opthamlomology History: Reports: Hx Cataracts - Had sx on left eye, Hx Contacts or Glasses Denies: Hx Eye Injury Neurological History: Denies: Hx Seizures - Surgical History Surgery Procedure, Year, and Place: left cataract 2003. bypass 1993. cardiac stents Hx Anesthesia Reactions: No - Immunization History Date of Tetanus Vaccine: Unk Date of Influenza Vaccine: Fall 2012 Infectious Disease History: No Infectious Disease History: Reports: History Other Infectious Disease - pneumonia 2 weeks ago Denies: Hx of Known/Suspected MRSA, Hx Tuberculosis, Traveled Outside the [place] in Last 30 Days - Family History Known Family History: Negative: Cardiac Disease, Diabetes - Social History Occupation: Retired Lives: With Family Alcohol Use: Daily Alcohol Amount: 4 oz red wine Hx Substance Use: No Substance Use Type: Reports: None Hx Tobacco Use: Yes Smoking Status (MU): Former Smoker Type: Cigarettes Amount Used/How Often: 0.5 pack per day Length of Time of Smoking/Using Tobacco: 30 Have You Smoked in the Last Year: No Review of Systems Negative: Fever, Skin Diaphoresis Positive: Chest Pain Negative: Shortness Of Breath Negative: Abdominal Pain, Nausea Negative: Edema All Other Systems Reviewed And Are Negative: Yes Physical Exam - Summary Physical Exam Summary: The patient is well-nourished in no acute distress and in no acute pain. The skin is warm and dry and skin color reflects adequate perfusion. HEENT: The head is normocephalic and atraumatic. The pupils are equal and reactive. The conjunctivae are clear and without drainage. Nares are patent and without drainage. Mouth reveals moist mucous membranes and the throat is without erythema and exudate. The external ears are intact. The ear canals are patent and without drainage. The tympanic membranes are intact. Neck is supple with full range of motion and non-tender. There are no carotid bruits. There is no neck vein distension. Respiratory: Chest has no reproducible pain. Lungs are clear to auscultation and breath sounds are symmetrical and equal. Cardiovascular: Heart is regular rate and rhythm. There is no murmur or rub auscultated. There is no peripheral edema and pulses are symmetrical and equal. Abdomen: The abdomen is soft and non-tender. There are normal bowel sounds heard in all four quadrants and there is no organomegaly palpated. Musculoskeletal: There is no back pain noted. Extremities are non-tender with full range of motion. There is good capillary refill. There is no peripheral edema or calf tenderness elicited. Neurological: Patient is alert and oriented to person, place and time. The patient has symmetrical motor strength in all four extremities. Cranial nerves are grossly intact. Deep tendon reflexes are symmetrical and equal in all four extremities. Psychiatric: The patient has an appropriate affect and does not exhibit any anxiety or depression. Triage Information Reviewed: Yes Vital Signs On Initial Exam: Initial Vital Signs Temp 98.4 F 04/18/17 20:30 Pulse 66 04/18/17 20:30 Resp 18 04/18/17 20:30 BP 139/65 04/18/17 20:30 Pulse Ox 94 04/18/17 20:30 Vital Signs Reviewed: Yes - Carey Coma Scale Coma Scale Total: 15 Diagnostics - Vital Signs Vital Signs Temp Pulse Resp BP Pulse Ox 04/18/17 22:30 53 14 117/62 94 04/18/17 22:00 55 14 118/62 94 04/18/17 21:43 97.6 F 58 23 130/79 95 04/18/17 21:42 130/79 04/18/17 20:30 98.4 F 66 18 139/65 94 - Laboratory Lab Results: Lab Results 04/18/17 04/18/17 04/18/17 Range/Units 22:58 22:58 22:58 WBC 9.6 (3.5-10.8) 10^3/ul RBC 4.57 (4.0-5.4) 10^6/ul Hgb 14.2 (14.0-18.0) g/dl Hct 43 (42-52) % MCV 95 H (80-94) fL MCH 31 (27-31) pg MCHC 33 (31-36) g/dl RDW 13 (10.5-15) % Plt Count 239 (150-450) 10^3/ul MPV 8 (7.4-10.4) um3 Immature Gran % (Auto) 3 (0-9) % Neut % (Auto) 60.9 (38-83) % Lymph % (Auto) 17.6 L (25-47) % [place] % (Auto) 9.7 H (1-9) % Eos % (Auto) 7.6 H (0-6) % Baso % (Auto) 4.2 H (0-2) % Absolute Neuts (auto) 5.9 (1.5-7.7) 10^3/ul Absolute Lymphs (auto) 1.7 (1.0-4.8) 10^3/ul Absolute Monos (auto) 0.9 H (0-0.8) 10^3/ul Absolute Eos (auto) 0.7 H (0-0.6) 10^3/ul Absolute Basos (auto) 0.4 H (0-0.2) 10^3/ul Absolute Nucleated RBC 0.02 10^3/ul Neutrophils % 68 (38-83) % Band Neutrophils % 3 (0-8) % Lymphocytes % 17 L (25-47) % Reactive Lymphs % 7 H (0-6) % Monocytes % 3 (0-13) % Eosinophils % 2 (0-6) % Nucleated RBC % 0.2 Normal RBC Morphology Normal (Normal) INR (Anticoag Therapy) (0.89-1.11) Sodium 136 (133-145) mmol/L Potassium 4.4 (3.5-5.0) mmol/L Chloride 104 (101-111) mmol/L Carbon Dioxide 27 (22-32) mmol/L Anion Gap 5 (2-11) mmol/L BUN 22 (6-24) mg/dL Creatinine 1.19 H (0.67-1.17) mg/dL Est GFR ( Amer) 76.9 (>60) Est GFR (Non-Af Amer) 59.8 (>60) BUN/Creatinine Ratio 18.5 (8-20) Glucose 132 H (70-100) mg/dL Lactic Acid 1.7 (0.5-2.0) mmol/L Calcium 8.7 (8.6-10.3) mg/dL Magnesium 2.1 (1.9-2.7) mg/dL Total Bilirubin 0.30 (0.2-1.0) mg/dL AST 17 (13-39) U/L ALT 14 (7-52) U/L Alkaline Phosphatase 46 (34-104) U/L Troponin I 0.00 (<0.04) ng/mL B-Natriuretic Peptide ( - 100) pg/mL Total Protein 6.2 L (6.4-8.9) g/dL Albumin 3.4 (3.2-5.2) g/dL Globulin 2.8 (2-4) g/dL Albumin/Globulin Ratio 1.2 (1-3) 04/18/17 04/18/17 04/19/17 Range/Units 22:58 22:58 01:42 WBC (3.5-10.8) 10^3/ul RBC (4.0-5.4) 10^6/ul Hgb (14.0-18.0) g/dl Hct (42-52) % MCV (80-94) fL MCH (27-31) pg MCHC (31-36) g/dl RDW (10.5-15) % Plt Count (150-450) 10^3/ul MPV (7.4-10.4) um3 Immature Gran % (Auto) (0-9) % Neut % (Auto) (38-83) % Lymph % (Auto) (25-47) % [place] % (Auto) (1-9) % Eos % (Auto) (0-6) % Baso % (Auto) (0-2) % Absolute Neuts (auto) (1.5-7.7) 10^3/ul Absolute Lymphs (auto) (1.0-4.8) 10^3/ul Absolute Monos (auto) (0-0.8) 10^3/ul Absolute Eos (auto) (0-0.6) 10^3/ul Absolute Basos (auto) (0-0.2) 10^3/ul Absolute Nucleated RBC 10^3/ul Neutrophils % (38-83) % Band Neutrophils % (0-8) % Lymphocytes % (25-47) % Reactive Lymphs % (0-6) % Monocytes % (0-13) % Eosinophils % (0-6) % Nucleated RBC % Normal RBC Morphology (Normal) INR (Anticoag Therapy) 0.79 L (0.89-1.11) Sodium (133-145) mmol/L Potassium (3.5-5.0) mmol/L Chloride (101-111) mmol/L Carbon Dioxide (22-32) mmol/L Anion Gap (2-11) mmol/L BUN (6-24) mg/dL Creatinine (0.67-1.17) mg/dL Est GFR ( Amer) (>60) Est GFR (Non-Af Amer) (>60) BUN/Creatinine Ratio (8-20) Glucose (70-100) mg/dL Lactic Acid (0.5-2.0) mmol/L Calcium (8.6-10.3) mg/dL Magnesium (1.9-2.7) mg/dL Total Bilirubin (0.2-1.0) mg/dL AST (13-39) U/L ALT (7-52) U/L Alkaline Phosphatase (34-104) U/L Troponin I 0.00 (<0.04) ng/mL B-Natriuretic Peptide 76 ( - 100) pg/mL Total Protein (6.4-8.9) g/dL Albumin (3.2-5.2) g/dL Globulin (2-4) g/dL Albumin/Globulin Ratio (1-3) Result Diagrams: 04/18/17 22:58 04/18/17 22:58 Lab Statement: Any lab studies that have been ordered have been reviewed, and results considered in the medical decision making process. - EKG 2023 Cardiac Rate: Bradycardia - 64 bpm EKG Rhythm: Sinus Rhythm EKG Interpretation: T-wave inversions in V2 and V3 EKG Comparison: No Significant Change - From 04/17/17 3 Cardiac Rate: Bradycardia - 50 bpm EKG Rhythm: Sinus Rhythm ST Segment: Non-Specific EKG Interpretation: T-wave inversions in anterior leads unchanged from EKG earlier today. Re-Evaluation - Re-Evaluation First Eval Re-Evaluation Time: 02:34 Change: Improved Comment: PT pain has resolved. Blood work reviewed. Chest Pain Course/Dx - Course Course Of Treatment: 76 y/o male presents with recurring sharp CP for the past 4 days discharged 2 days ago from [facility] with negative stress test. 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 Old records were reviewed. Pt had 2 troponin tests both were normal and will be discharged home with pain medications and FU with his container filler. - Chest Pain Differential Diagnosis/HQI/PQRI: Acute NM, Angina - Diagnoses Provider Diagnoses: Chest pain Discharge - Discharge Plan Condition: Stable Disposition: HOME Prescriptions: oxyCODONE/Acetamin 5/325 MG* [Percocet 5/325 TAB*] 1 tab PO Q6H PRN #12 tab MDD 4 PRN Reason: pain Patient Education Materials: Chest Pain (ED) Referrals: Roderick Gutierrez MD [Primary Care Provider] - Junior Adrian MD [Medical Doctor] - The documentation as recorded by the Mikhail cardenas Alok accurately reflects the service I personally performed and the decisions made by me, Augusto Madison MD.
== END 2017-04-19 03:05 | disposition home or self-care (01) ==
LOC: ED 20:29
DX: R07.9 Chest pain, unspecified (principal); Z87.891 Personal history of nicotine dependence; E11.9 Type 2 diabetes mellitus without complications; Z79.84 Long term (current) use of oral hypoglycemic drugs; I25.2 Old myocardial infarction; I10 Essential (primary) hypertension; Z79.01 Long term (current) use of anticoagulants; I20.9 Angina pectoris, unspecified
CPT/HCPCS: 36415; 80053; 83605; 83735; 83880; 84484; 85025; 85610; 93005; 96360; 96374; 99283; A9270-GY; J2270

== ENCOUNTER 2019-04-21 16:25 | Emergency (ER) | payer MEDICARE ==
--- OUTSIDE RECORDS SUMMARY | 2019-04-21 16:31 | XMS REPORT | Continuity of Care Document ---
:1940 External Reference #:[id number] Author Name Timothy Avila M.D. Address [address] [place] [address] Care Team Providers Name Role Phone Roderick Gutierrez M.D. Primary Care Physician Unavailable Payers Date Identification Numbers Payment Provider Subscriber Policy Number: [id number] [employer] Talon Langston PayID: [id number] [id number] [place] [address] Problems Active Problems Provider Date Essential hypertension Onset: Hypercholesterolemia Onset: Asthma Onset: Seasonal allergy Onset: Type 2 diabetes mellitus Onset: Note: 2000 Other secondary cataract, left eye Timothy Avila M.D. Onset: 04/15/2019 Vitreous degeneration Timothy Avila M.D. Onset: 02/05/2017 Presence of intraocular lens Timothy Avila M.D. Onset: 08/06/2015 Combined form of senile cataract Timothy Avila M.D. 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 75mg Tablets Pravastatin Sodium Unknown 40mg Tablets Aspir-[address] History Medications Ciprofloxacin HCL instill one drop 5ml Timothy Avila, 08/23/2015 - 0.3% in the right eye M.DCarlyle 09/13/2015 Solution three times a day, start the day before surgery Ketorolac Tromethamine drop right eye Timothy Avila, 08/23/2015 - 0.5% every day M.DCarllye 01/03/2016 Solution Prednisolone Acetate 1 drop right eye Timothy Avila, 08/23/2015 - 1% every day M.D. 01/03/2016 Suspension Advair Diskus Roderick Gutierrez M.D. - 100-50mcg/Dose 02/05/2017 Aerosol Alavert 1 tab po daily Unknown - 10mg Tablets 04/15/2018 Procedures Date Code Description Status 02/11/2018 28510 Est Patient Comprehensive Exam Completed 02/05/2017 36198 Determination Of Refractive State Completed 02/05/2017 50974 Est Patient Comprehensive Exam Completed 01/04/2016 39598 Est Patient Intermediate Exam Completed 09/01/2015 90478 Extracapsular Cataract Extraction W/Intraocular Lens Completed 08/23/2015 39132 Ophthalmic Biometry Completed 08/23/2015 23130 Scanning Computerized Opthalmic Diagnostic Posterior Seg Completed Retina 08/06/2015 91991 Est Patient Intermediate Exam Completed 12/25/2014 84492 Est Patient Comprehensive Exam Completed 12/23/2013 01360 Determination Of Refractive State Completed 12/23/2013 51739 Est Patient Comprehensive Exam Completed 12/03/2012 34321 Est Patient Comprehensive Exam Completed 09/05/2011 37033 Determination Of Refractive State Completed 09/05/2011 28654 Est Patient Comprehensive Exam Completed 08/23/2010 56008 Est Patient Comprehensive Exam Completed 08/23/2010 13347 Determination Of Refractive State Completed 08/17/2009 71356 Scanning Laser W/Interp And Report Completed 08/17/2009 46960 Est Patient Comprehensive Exam Completed 07/01/2008 14394 Est Patient Intermediate Exam Completed 02/19/2008 76584 Extracapsular Cataract Extraction W/Intraocular Lens Completed 02/14/2008 09107 Ophthalmic Biometry Completed 01/17/2008 20051 Scanning Laser W/Interp And Report Completed 01/17/2008 10506 Est Patient Comprehensive Exam Completed 01/03/2007 95991 Determination Of Refractive State Completed 01/03/2007 21296 Est Patient Comprehensive Exam Completed 12/14/2005 60544 Determination Of Refractive State Completed 12/14/2005 04927 Est Patient Comprehensive Exam Completed 12/22/2004 72637 Determination Of Refractive State Completed 12/22/2004 51088 Est Patient Comprehensive Exam Completed 02/26/2004 26706 Determination Of Refractive State Completed 02/26/2004 30384 Est Patient Comprehensive Exam Completed Encounters Type Date Location Provider Dx Diagnosis Office Visit 08/23/2015 Timothy Lackey, H25.811 Combined forms of 10:45a aline CROTES M.D. 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 Sclerosis / Cataract Plan of Treatment 04/15/2019 - Timothy Avila M.D.E11.9 Type 2 diabetes mellitus without complicationsComments:Smoking can increase the risk of developing or worsening any eye related disease, as well as affect your overall health. If you are a smoker, we strongly recommend that you quit.If you are not a smoker, we strongly recommend that you do not start. You have diabetes. I do not detect any changes in both of your retinas from diabetes at this time. Proper control of your diabetes is important for the health of your eyes. Changes in your eyes from diabetes can happen without symptoms, so it is important that you have your eyes examined. Dr. Avila has sent a report to your primary care doctor , lettingthem know there is no damage from the Diabetes in your eyes.Follow up: 1 Year Follow Up You can expect to have your eyes dilated at your next visit. If Dr. Avila orders any additional testing, it may require extra time. We recommend that you bring sunglasses, as dilationdrops often make you light sensitive until they wear off. We always recommend you bring someone to drive you home if you are uncomfortable driving with your eyes dilated. If you have any questions before your next visit, feel free to call our office at [phone].H26.492 Other secondary cataract, left eyeComments:There is clouding in the sac that holds your artificial lens in your left eye. We will schedule you an appointment for the YAG Capsulotomy laser with Dr. Avila. Please read the pamphlet that has been printed out for you. We recommend you bring someone to drive you home.Follow up:Schedule YAG OSZ96.1 Presence of intraocular lensComments:The artificial lens implants in both eyes appear to be stable at this time.H43.813 Vitreous degeneration, bilateralComments:You have a Posterior Vitreous Detachment. If you have any changes in your floaters or flashing lights , please contact this office.
--- OUTSIDE RECORDS SUMMARY | 2019-04-21 16:32 | XMS REPORT | Continuity of Care Document ---
:1940 External Reference #:[id number] Author Name Argentina Butt Care Team Providers Name Role Phone Calixto Powell MD Care Team Information Loans Consultant Unavailable Roderick Gutierrez MD Primary Care Physician Unavailable Payers Date Identification Numbers Payment Provider Subscriber Policy Number: [id number] [employer] Talon Langston PayID: [id number] [address] [place] [address] Expires: 2016 Policy Number: [id number] Medicare Talon Langston PayID: [id number] [address] [place] [address] Expires: 2016 Policy Number: [id number] [employer] Talon Langston Group Number: [id number] [address] PayID: [id number] [place] [address] Problems Active Problems Provider Date Coronary arteriosclerosis Kaiser Pinto M.D. Onset: 10/17/2012 Type 2 diabetes mellitus Kaiser Pinto M.D. Onset: 10/17/2012 Pure hypercholesterolemia Kaiser Pinto M.D. Onset: 10/17/2012 Heart murmur Kaiser Pinto M.D. Onset: 10/17/2012 Benign essential hypertension Guerda Lutz M.D. Onset: 02/05/2013 Aortocoronary Bypass Postsurgical Status Guerda Lutz M.D. Onset: 02/05/2013 Chronic ischemic heart disease Junior Adrian M.D., [facility], Onset: 04/10/2014 [facility] Mitral valve disorder [place] [facility] Schedule Onset: 04/17/2014 Hyperlipidemia Junior Adrian M.D., [facility], Onset: 05/28/2014 [facility] Aortic valve disorder Junior Adrian M.D., [facility], Onset: 08/18/2014 [facility] Intrinsic asthma without status Trisha Mendez MD Onset: 02/10/2015 asthmaticus Pneumonia Trisha Mendez MD Onset: 02/10/2015 Bronchiolectasis Trisha Mendez MD Onset: 05/12/2015 Essential hypertension Junior Adrian M.D., [facility], Onset: 08/09/2015 [facility] Chest pain Junior Adrian M.D., [facility], Onset: 04/19/2017 [facility] Family History Date Family Member(s) Observation Comments General non contributory Father non contributory; when pt a boy Father due to Unknown Causes () Father due to Age 60 () Mother lived until age 92 Mother due to Natural Causes () Mother due to Age 91 () Siblings 4 Siblings all live in [place] Social History Type Date Description Comments Sex Unknown Marital Status Lives With Occupation Retired ETOH Use 1/2 glass of red wine every day Tobacco Use Start: Unknown End: Patient is a former quit 25yrs ago Unknown smoker Recreational Drug Use Denies Drug Use Smoking Status Reviewed: 03/25/19 Patient is a former quit 25yrs ago smoker Exercise Type/Frequency Exercises regularly Allergies, Adverse Reactions, Alerts Active Allergies Reaction Severity Comments Date Niaspan raised HgB Aic 04/02/2003 Medications Active Medications SIG Qnty Indications Ordering Provider Date Levaquin 1 tab daily for 10tabs J47.1 Trisha Mendez, 08/26/2018 500mg Tablets 10 days- last MD dose tomorrow Atenolol 1 by mouth daily 60tabs Kaiser Marks 04/16/2014 25mg Tablets Emma Pinto Nitrostat one sl q5min up 25tabs Junior Adrian, 04/16/2014 0.4mg Tablets to 3 doses as PATO Carter, [facility] Sub needed Aspirin Enteric qd Kaiser Marks 04/01/2003 Coated Emma Pinto 81mg Tablets Pravastatin Sodium 1 tablet daily at 90tabs Unknown 40mg bedtime Tablets Metformin HCL ER 1 po three times 30tabs Unknown 500mg daily Tablets ER 24HR Clopidogrel Bisulfate 1 by mouth every 90tabs Junior Adrian, day Emma, [facility], [facility] 75mg Tablets History Medications Amlodipine Besylate 1 by mouth every 30tabs I10 Junior Adrian, 04/19/2017 - 2.5mg day ( PT Does Emma, [facility], 08/25/2018 Tablets Not Take) [facility] Azithromycin 1 tablet by 7tabs Trisha 12/07/2016 - 500mg Tablets mouth daily for MD Andrea 04/17/2017 7 days Prednisone 4 tabs day#1, 3 21units Trisha 12/01/2016 - 10mg (21) TBPK tabs day#2, 2 MD Andrea 04/17/2017 tabs day#3, 1 tab for 7 days Levaquin 1 by mouth every 7tabs Trisha 12/01/2016 - 500mg Tablets day MD Andrea 04/17/2017 Flutter use as 1units J47.9 Trisha 07/20/2016 - Device instructed twice MD Andrea 08/25/2018 a day Prednisone 20mg daily 7tabs J47.9 Trisha 11/05/2015 - 20mg Tablets MD Andrea 07/20/2016 Zithromax 1 tab by mouth 10tabs J47.9 Trisha 11/05/2015 - 500mg Tablets every day MD Andrea 07/19/2016 Prednisone (Benjy) 2 tabs for 7 21tabs Trisha 05/17/2015 - 10mg Tablets days and 1 tab MD Andrea 08/08/2015 for 7 days Levofloxacin 1 by mouth every 14tabs Trisha 05/17/2015 - 500mg Tablets day MD Andrea 08/08/2015 Prednisone 30mg daily for 1 42tabs 494.0 Trisha 05/12/2015 - 10mg Tablets week, 20mg daily MD Andrea 08/08/2015 for 1 week, 10 mg daily for 1 week Levofloxacin 1 by mouth every 14tabs 494.0 Trisha 05/12/2015 - 500mg Tablets day MD Andrea 08/08/2015 Alavert every day by Unknown 02/09/2015 - 10mg Tablets mouth prn 07/19/2016 Advair Diskus 1 inhalation Unknown 02/09/2015 - 100-50mcg/Dose twice daily 08/08/2015 Aerosol Nitroglycerin 1 to chest wall 30units Kaiser Marks 04/16/2014 - 0.2mg/HR Patches on every morning Emma Pinto 06/30/2014 24HR off every night Nitro-Dur 1 patch qd 30units Kaiser Marks 01/15/2013 - 0.2mg/HR Patches 24HR Emma Pinto 08/25/2013 on in the am, off in the pm Lisinopril 1 by mouth every 90tabs Kaiser Marks 05/11/2011 - 10mg Tablets day hold as of Emma Pinto 05/27/2014 7.25.14 Lisinopril 1 po qd if BP Kaiser Marks 04/28/2011 - 5mg Tablets >130/ Emma Pinto 05/11/2011 Metformin HCL 1 po qd 60tabs Kaiser Marks 04/27/2011 - 500mg Tablets Emma Pinto 10/17/2012 Lipitor one tab po qhs 90tabs Kaiser Marks 11/26/2007 - 20mg Tablets Emma Pinto 12/10/2009 Glipizide/Metformin HCL 1 po bid 180tabs Kaiser Marks 09/09/2007 - Emma Pinto 01/21/2008 2.5-500M Tablets Fish Oil 1 PO qd 180caps Kaiser Marks 08/26/2007 - 1000mg Capsules Emma Pinto 11/26/2007 Glipizide ER 1 qd Kaiser Marks 06/04/2007 - 2.5mg Tablets ER Emma Pinto 09/09/2007 24HR Simvastatin 1 po qd 30tabs Kaiser Marks 06/04/2007 - 20mg Tablets Emma Pinto 11/26/2007 Flovent HFA bid 1Mdi Kaiser Marks 06/04/2007 - 110mcg/Act Aerosol Emma Pinto 12/10/2009 Norvasc 1 po qd 90tabs Kaiser Marks 01/31/2007 - 2.5mg Tablets Emma Pinto 06/04/2007 Lisinopril 1 po qpm 90tabs Kaiser Marks 11/22/2006 - 20mg Tablets Emma Pinto 04/28/2011 Norvasc 1 po qam 90tabs Kaiser Marks 10/05/2006 - 5mg Tablets Emma Pinto 01/31/2007 Advair Diskus bid Kaiser Marks 10/05/2006 - 100mcg;50mcg Emma Pinto 06/04/2007 Inhaler Atenolol 1 po qpm 90tabs Kaiser Marks 08/20/2006 - 25mg Tablets Emma Pinto 04/16/2014 Norvasc 1 po qd 90tabs Kaiser Marks 08/20/2006 - 2.5mg Tablets Emma Pinto 10/05/2006 Hydrochlorothiazide 1 po qd [facility] 08/02/2006 - 25mg Emma Pinto 08/20/2006 Tablets Hydrochlorothiazide 1 po qd 90caps Kaiser Marks 07/20/2006 - 12.5mg Emma Pinto 08/02/2006 Capsules Metformin 1 po bid Kaiser FCarlyle 07/20/2006 - 1,000mg Tablets Emma Pinto 06/04/2007 Atenolol 1 po qd Kaiser FCarlyle 07/20/2006 - 50mg Tablets Emma Pinto 08/20/2006 Flovent 2 puff bid Kaiser Marks 07/20/2006 - 110mcg/Inhalation Emma Pinto 10/05/2006 Aerosol Albuterol Inhalation 2 puffs qid prn Kaiser Marks 07/20/2006 - 90mcg/Dose Emma Pinto 10/05/2006 Aerosol Metformin 1 po bid 60tabs Kaiser Marks 07/10/2005 - 500mg Tablets Emma Pinto 07/20/2006 Lipitor 1 po qd 90tabs Kaiser Marks 06/20/2004 - 20mg Tablets Emma Pinto 06/04/2007 Altace 1 po qd 90caps Kaiser Marks 06/20/2004 - 10mg Capsules Emma Pinto 11/22/2006 Atenolol 1 po qd 30tabs Kaiser Marks 04/01/2003 - 25mg Tablets Emma Pinto 07/20/2006 Pravachol one qhs 30tabs Kaiser Marks 04/01/2003 - 20mg Tablets Emma Pinto 06/20/2004 Lisinopril 1 po qd 60tabs Kaiser Marks 04/01/2003 - 20mg Tablets Emma Pinto 06/20/2004 Simvastatin 1 po qd 90tabs Unknown - 40mg Tablets 10/17/2012 Advair Diskus 1 inhalation 1units Unknown - 100-50mcg/Dose twice daily prn 03/24/2014 Aerosol Oxycodone-Acetaminophen 1 tabs by mouth Unknown - 5-325mg every 6 hours as 09/03/2018 Tablets needed for pain Vital Signs Date Vital Result Comment 03/25/2019 9:02am Height 67 inches 5'7" Weight 122.00 lb Heart Rate 70 /min BP Systolic Sitting 112 mmHg Lue regular cuff BP Diastolic Sitting 68 mmHg Lue regular cuff Respiratory Rate 12 /min O2 % BldC Oximetry 97 % BMI (Body Mass Index) 19.1 kg/m2 09/04/2018 12:58pm Height 67 inches 5'7" Weight 129.00 lb without shoes Heart Rate 56 /min BP Systolic Sitting 140 mmHg Lue, reg cuff BP Diastolic Sitting 64 mmHg Lue, reg cuff BP Systolic Standing 148 mmHg Lue, reg cuff BP Diastolic Standing 66 mmHg Lue, reg cuff Respiratory Rate 14 /min Pain Level 0 BMI (Body Mass Index) 20.2 kg/m2 Ejection Fraction 55-60% echo 07/201408/26/2018 12:09pm Height 67 inches 5'7" Weight 124.12 lb Heart Rate 56 /min BP Systolic Sitting 152 mmHg Rue reg cuff BP Diastolic Sitting 70 mmHg Rue reg cuff Respiratory Rate 22 /min O2 % BldC Oximetry 94 % On Ra BMI (Body Mass Index) 19.4 kg/m2 09/03/2017 8:15am Height 67 inches 5'7" Weight 128.00 lb with shoes Heart Rate 52 /min sit and 56 sit BP Systolic Sitting 112 mmHg Lue reg cuff BP Diastolic Sitting 70 mmHg Lue reg cuff BP Systolic Standing 110 mmHg Lue reg cuff BP Diastolic Standing 78 mmHg Lue reg cuff Respiratory Rate 16 /min BMI (Body Mass Index) 20.0 kg/m2 Ejection Fraction 55-60% date 08/05/2014 ECHO 04/23/2017 1:14pm Height 67 inches 5'7" Weight 129.00 lb Heart Rate 58 /min BP Systolic Sitting 126 mmHg BP Diastolic Sitting 82 mmHg Respiratory Rate 16 /min O2 % BldC Oximetry 96 % room air BMI (Body Mass Index) 20.2 kg/m2 04/19/2017 3:14pm Height 67 inches 5'7" Weight 132.38 lb with shoes Heart Rate 54 /min BP Systolic Sitting 150 mmHg Rue reg cuff BP Diastolic Sitting 72 mmHg Rue reg cuff BP Systolic Standing 136 mmHg Rue reg cuff BP Diastolic Standing 74 mmHg Rue reg cuff Respiratory Rate 16 /min BMI (Body Mass Index) 20.7 kg/m2 Ejection Fraction 55-60% 2013 echo 09/04/2016 9:18am Height 67 inches 5'7" Weight 134.00 lb w/ shoes Heart Rate 58 /min reg BP Systolic Sitting 124 mmHg Rue, reg cuff BP Diastolic Sitting 66 mmHg Rue, reg cuff BP Systolic Standing 120 mmHg Rue BP Diastolic Standing 64 mmHg Rue Respiratory Rate 16 /min BMI (Body Mass Index) 21.0 kg/m2 Ejection Fraction 55-60% as of 08/05/14 echo 08/11/2016 8:17am Height 67 inches 5'7" Weight 133.00 lb Heart Rate 58 /min BP Systolic Sitting 127 mmHg BP Diastolic Sitting 70 mmHg Respiratory Rate 14 /min O2 % BldC Oximetry 97 % BMI (Body Mass Index) 20.8 kg/m2 07/20/2016 8:24am Height 67 inches 5'7" Weight 133.00 lb Heart Rate 68 /min BP Systolic Sitting 132 mmHg BP Diastolic Sitting 77 mmHg Respiratory Rate 14 /min O2 % BldC Oximetry 97 % BMI (Body Mass Index) 20.8 kg/m2 11/05/2015 1:17pm Height 67 inches 5'7" Weight 133.00 lb Heart Rate 60 /min BP Systolic 128 mmHg BP Diastolic 60 mmHg Respiratory Rate 14 /min O2 % BldC Oximetry 97 % BMI (Body Mass Index) 20.8 kg/m2 08/30/2015 3:16pm Height 67 inches 5'7" Weight 132.00 lb Heart Rate 60 /min 68 BP Systolic Sitting 124 mmHg left arm, reg cuff BP Diastolic Sitting 64 mmHg left arm, reg cuff BP Systolic Standing 114 mmHg left arm, reg cuff BP Diastolic Standing 68 mmHg left arm, reg cuff Respiratory Rate 16 /min BMI (Body Mass Index) 20.7 kg/m2 Ejection Fraction 60% 08/05/15 08/09/2015 11:10am Height 67 inches 5'7" Weight 133.00 lb Heart Rate 58 /min 60 BP Systolic Sitting 132 mmHg right arm, reg cuff BP Diastolic Sitting 72 mmHg right arm, reg cuff BP Systolic Standing 126 mmHg right arm, reg cuff BP Diastolic Standing 72 mmHg right arm, reg cuff Respiratory Rate 16 /min BMI (Body Mass Index) 20.8 kg/m2 Ejection Fraction 60% 08/05/14 05/12/2015 1:01pm Height 67 inches 5'7" Weight 134.00 lb reported Heart Rate 53 /min BP Systolic 124 mmHg BP Diastolic 62 mmHg Respiratory Rate 14 /min O2 % BldC Oximetry 97 % BMI (Body Mass Index) 21.0 kg/m2 02/10/2015 10:39am Height 67 inches 5'7" Weight 134.00 lb Heart Rate 55 /min BP Systolic Sitting 126 mmHg BP Diastolic Sitting 58 mmHg Respiratory Rate 20 /min Body Temperature 97.8 F O2 % BldC Oximetry 98 % BMI (Body Mass Index) 21.0 kg/m2 08/18/2014 2:56pm Height 67 inches 5'7" Weight 131.00 lb Heart Rate 60 /min 62 BP Systolic Sitting 126 mmHg left arm, reg cuff BP Diastolic Sitting 68 mmHg left arm, reg cuff BP Systolic Standing 118 mmHg left arm, reg cuff BP Diastolic Standing 68 mmHg left arm, reg cuff Respiratory Rate 16 /min BMI (Body Mass Index) 20.5 kg/m2 07/01/2014 2:01pm Height 67 inches 5'7" Weight 129.00 lb Heart Rate 58 /min 58 BP Systolic Sitting 122 mmHg left arm, reg cuff BP Diastolic Sitting 70 mmHg left arm, reg cuff BP Systolic Standing 128 mmHg left arm, reg cuff BP Diastolic Standing 72 mmHg left arm, reg cuff Respiratory Rate 20 /min BMI (Body Mass Index) 20.2 kg/m2 05/28/2014 3:21pm Height 67 inches 5'7" Weight 129.00 lb Heart Rate 56 /min 62 BP Systolic Sitting 124 mmHg left arm, reg cuff BP Diastolic Sitting 64 mmHg left arm, reg cuff BP Systolic Standing 118 mmHg left arm, reg cuff BP Diastolic Standing 64 mmHg left arm, reg cuff Respiratory Rate 16 /min BMI (Body Mass Index) 20.2 kg/m2 05/05/2014 3:08pm Height 67 inches 5'7" Weight 130.00 lb Heart Rate 56 /min 58 BP Systolic Sitting 124 mmHg left arm, reg cuff BP Diastolic Sitting 64 mmHg left arm, reg cuff BP Systolic Lying Down 122 mmHg left arm, reg cuff BP Diastolic Lying Down 64 mmHg left arm, reg cuff Respiratory Rate 16 /min BMI (Body Mass Index) 20.4 kg/m2 04/16/2014 3:55pm Height 67 inches 5'7" Weight 128.00 lb Heart Rate 64 /min BP Systolic Sitting 114 mmHg BP Diastolic Sitting 58 mmHg Respiratory Rate 15 /min BMI (Body Mass Index) 20.0 kg/m2 04/10/2014 2:24pm Height 67 inches 5'7" Weight 128.00 lb Heart Rate 60 /min 62 BP Systolic Sitting 98 mmHg left arm, reg cuff BP Diastolic Sitting 58 mmHg left arm, reg cuff BP Systolic Standing 94 mmHg left arm, reg cuff BP Diastolic Standing 58 mmHg left arm, reg cuff Respiratory Rate 16 /min BMI (Body Mass Index) 20.0 kg/m2 08/25/2013 4:00pm Height 67 inches 5'7" Weight 137.00 lb Heart Rate 60 /min BP Systolic Sitting 118 mmHg BP Diastolic Sitting 60 mmHg BMI (Body Mass Index) 21.5 kg/m2 02/05/2013 1:50pm Height 67 inches 5'7" Weight 133.00 lb Heart Rate 64 /min BP Systolic Sitting 118 mmHg BP Diastolic Sitting 66 mmHg Respiratory Rate 16 /min BMI (Body Mass Index) 20.8 kg/m2 10/17/2012 9:36am Height 67 inches 5'7" Weight 134.00 lb Heart Rate 51 /min BP Systolic 120 mmHg BP Diastolic 64 mmHg Respiratory Rate 16 /min BMI (Body Mass Index) 21.0 kg/m2 04/27/2011 10:36am Height 67 inches 5'7" Weight 133.00 lb Heart Rate 58 /min BP Systolic Sitting 84 mmHg L BP Diastolic Sitting 54 mmHg L BMI (Body Mass Index) 20.8 kg/m2 04/27/2011 10:36am Height 67 inches 5'7" 12/10/2009 3:01pm Height 67 inches 5'7" Weight 142.00 lb Heart Rate 58 /min BP Systolic Sitting 120 mmHg L BP Diastolic Sitting 70 mmHg L BMI (Body Mass Index) 22.2 kg/m2 06/04/2008 8:45am Height 67 inches 5'7" Weight 142.00 lb Heart Rate 58 /min BP Systolic Sitting 100 mmHg L BP Diastolic Sitting 60 mmHg L BMI (Body Mass Index) 22.2 kg/m2 06/04/2007 9:24am Height 67 inches 5'7" Weight 142.25 lb Heart Rate 57 /min BP Systolic Sitting 120 mmHg BP Diastolic Sitting 74 mmHg BP Systolic Standing 106 mmHg BP Diastolic Standing 70 mmHg BMI (Body Mass Index) 22.3 kg/m2 01/31/2007 10:12am Height 67 inches 5'7" Weight 140.00 lb Heart Rate 60 /min BP Systolic Sitting 130 mmHg L BP Diastolic Sitting 70 mmHg L BP Systolic Standing 120 mmHg L BP Diastolic Standing 70 mmHg L BMI (Body Mass Index) 21.9 kg/m2 11/22/2006 10:21am Height 67 inches 5'7" Weight 138.00 lb Heart Rate 60 /min reg BP Systolic Sitting 140 mmHg BP Diastolic Sitting 80 mmHg BP Systolic Standing 120 mmHg BP Diastolic Standing 80 mmHg BMI (Body Mass Index) 21.6 kg/m2 10/05/2006 9:49am Height 67 inches 5'7" Weight 138.00 lb Heart Rate 61 /min BP Systolic Sitting 150 mmHg R BP Diastolic Sitting 80 mmHg R BP Systolic Standing 140 mmHg R BP Diastolic Standing 78 mmHg R BMI (Body Mass Index) 21.6 kg/m2 07/20/2006 2:22pm Height 67 inches 5'7" Weight 146.00 lb Heart Rate 61 /min BP Systolic Sitting 142 mmHg BP Diastolic Sitting 82 mmHg BP Systolic Standing 130 mmHg BP Diastolic Standing 84 mmHg BMI (Body Mass Index) 22.9 kg/m2 07/10/2005 10:46am Height 67 inches 5'7" Weight 136.00 lb Heart Rate 59 /min BP Systolic Sitting 146 mmHg BP Diastolic Sitting 80 mmHg BP Systolic Standing 130 mmHg BP Diastolic Standing 70 mmHg BMI (Body Mass Index) 21.3 kg/m2 04/02/2003 1:22pm Height 67 inches Weight 142.00 lb BP Systolic Sitting 126 mmHg BP Diastolic Sitting 74 mmHg BP Systolic Standing 110 mmHg BP Diastolic Standing 70 mmHg BMI (Body Mass Index) 22.2 kg/m2 Results Test Date Facility Test Result H/L Range Note Xray 04/24/20 [facility] [address] Chest W/O <pending> [address] [place] [address] [phone] Immunoglobulins 02/11/20 [facility] Immunoglobulin G 1330 mg/dL N 767 - 1 Serum Quant [address] [place] [address] [phone] Immunoglobulin M 49 mg/dL N 37 - 286 Immunoglobulin A 408 mg/dL Abnormal 61 - 356 CBC Auto Diff 02/10/2015 [facility] White Blood 8.8 10^3/uL N 4.8-10.[address] [place] [address] [phone] Red Blood Count 4.70 10^6/uL N 4.0-5.4 Hemoglobin 14.6 g/dL N 14.0-18.0 Hematocrit 45 % N 42-52 Mean Corpuscular Volume 95 fL High 80-94 Mean Corpuscular Hemoglobin 31 pg N 27-31 Mean Corpuscular HGB Conc 33 g/dL N 31-36 Red Cell Distribution Width 13 % N 10.5-15 Platelet Count 229 10^3/uL N 150-450 Mean Platelet Volume 9 um3 N 7.4-10.4 Abs Neutrophils 5.2 10^3/uL N 1.5-7.7 Abs Lymphocytes 1.8 10^3/uL N 1.0-4.8 Abs Monocytes 0.9 10^3/uL High 0-0.8 Abs Eosinophils 0.8 10^3/uL High 0-0.6 Abs Basophils 0.1 10^3/uL N 0-0.2 Abs Nucleated RBC 0 10^3/uL N Granulocyte % 59.3 % N 38-83 Lymphocyte % 20.4 % Low 25-47 Monocyte % 9.7 % High 1-9 Eosinophil % 9.4 % High 0-6 Basophil % 1.2 % N 0-2 Nucleated Red Blood Cells % 0 N Inr/Protime 06/01/2014 [facility] Inr 0.88 N 0.85-1.[address] [place] [address] [phone] Comp Metabolic Panel 06/01/2014 [facility] Sodium 137 mmol/L N 133-[address] [place] [address] [phone] Potassium 4.3 mmol/L N 3.7-5.6 Chloride 104 mmol/L N 101-111 Co2 Carbon Dioxide 28 mmol/L N 22-32 Anion Gap 5 mmol/L N 2-11 Glucose 76 mg/dL N 70-100 Blood Urea Nitrogen 35 mg/dL High 6-24 Creatinine 1.22 mg/dL High 0.67-1.17 BUN/Creatinine Ratio 28.7 High 8-20 Calcium 9.6 mg/dL N 8.6-10.3 Total Protein 7.6 g/dL N 6.4-8.9 Albumin 4.2 g/dL N 3.2-5.2 Globulin 3.4 g/dL N 2-4 Albumin/Globulin Ratio 1.2 N 1-3 Total Bilirubin 0.40 mg/dL N 0.2-1.0 Alkaline Phosphatase 49 U/L N 34-104 Alt 14 U/L N 7-52 Ast 16 U/L N 13-39 Egfr Non- 58.4 N >60 Egfr 75.1 N >60 2 CBC No Diff 06/01/2014 [facility] White Blood 6.9 10^3/uL N 4.8-10.[address] [place] [address] [phone] Red Blood Count 4.69 10^6/uL N 4.0-5.4 Hemoglobin 14.7 g/dL N 14.0-18.0 Hematocrit 43 % N 42-52 Mean Corpuscular Volume 92 fL N 80-94 Mean Corpuscular Hemoglobin 31 pg N 27-31 Mean Corpuscular HGB Conc 34 g/dL N 31-36 Red Cell Distribution Width 13 % N 10.5-15 Platelet Count 194 10^3/uL N 150-450 Mean Platelet Volume 8 um3 N 7.4-10.4 CBC No Diff 05/05/2014 [facility] White Blood 8.7 10^3/uL N 4.8-10.[address] [place] [address] [phone] Red Blood Count 4.49 10^6/uL N 4.0-5.4 Hemoglobin 14.5 g/dL N 14.0-18.0 Hematocrit 43 % N 42-52 Mean Corpuscular Volume 95 fL High 80-94 Mean Corpuscular Hemoglobin 32 pg High 27-31 Mean Corpuscular HGB Conc 34 g/dL N 31-36 Red Cell Distribution Width 13 % N 10.5-15 Platelet Count 195 10^3/uL N 150-450 Mean Platelet Volume 8 um3 N 7.4-10.4 Basic Metabolic Panel 05/03/2014 [facility] Sodium 136 mmol/L N 133-[address] [place] [address] [phone] Potassium 4.2 mmol/L N 3.7-5.6 Chloride 102 mmol/L N 101-111 Co2 Carbon Dioxide 27 mmol/L N 22-32 Anion Gap 7 mmol/L N 2-11 Glucose 167 mg/dL High 70-100 Blood Urea Nitrogen 33 mg/dL High 6-24 Creatinine 1.29 mg/dL High 0.67-1.17 BUN/Creatinine Ratio 25.6 High 8-20 Calcium 9.6 mg/dL N 8.6-10.3 Egfr Non- 54.9 N >60 Egfr 70.6 N >60 5 Cath Panel 04/27/2014 [facility] Activated 32.5 seconds N 24.0 -36.[address] [place] [address] Time [phone] CBC Auto 04/27/2014 [facility] White Blood 7.0 10^3/uL N 4.8- 10.[address] [place], [place] [id number] [phone] Red Blood Count 4.62 10^6/uL N 4.0-5.4 Hemoglobin 14.7 g/dL N 14.0-18.0 Hematocrit 43 % N 42-52 Mean Corpuscular Volume 94 fL N 80-94 Mean Corpuscular Hemoglobin 32 pg High 27-31 Mean Corpuscular HGB Conc 34 g/dL N 31-36 Red Cell Distribution Width 13 % N 10.5-15 Platelet Count 210 10^3/uL N 150-450 Mean Platelet Volume 8 um3 N 7.4-10.4 Abs Neutrophils 4.6 10^3/uL N 1.5-7.7 Abs Lymphocytes 1.3 10^3/uL N 1.0-4.8 Abs Monocytes 0.6 10^3/uL N 0-0.8 Abs Eosinophils 0.6 10^3/uL N 0-0.6 Abs Basophils 0.1 10^3/uL N 0-0.2 Abs Nucleated RBC 0 10^3/uL N Granulocyte % 64.9 % N 38-83 Lymphocyte % 17.9 % Low 25-47 Monocyte % 7.9 % N 1-9 Eosinophil % 8.0 % High 0-6 Basophil % 1.3 % N 0-2 Nucleated Red Blood Cells % 0 N Basic Metabolic Panel 04/27/2014 [facility] Sodium 136 mmol/L N 133-145 [address] [place] [address] [phone] Potassium 4.3 mmol/L N 3.7-5.6 Chloride 103 mmol/L N 101-111 Co2 Carbon Dioxide 29 mmol/L N 22-32 Anion Gap 4 mmol/L N 2-11 Glucose 120 mg/dL High 70-100 Blood Urea Nitrogen 24 mg/dL N 6-24 Creatinine 1.34 mg/dL High 0.67-1.17 BUN/Creatinine Ratio 17.9 N 8-20 Calcium 9.2 mg/dL N 8.6-10.3 Egfr Non- 52.5 N >60 Egfr 67.6 N >60 6 Inr/Protime 04/27/2014 [facility] Inr 0.90 N 0.85-1.06 [address] [place] [address] [phone] Basic Metabolic 02/03/2013 [facility] Sodium 137 mmol/L 133- 145 Panel [address] [place] [address] [phone] Potassium 5.0 mmol/L 3.5-5.0 Chloride 101 mmol/L 101-111 Co2 Carbon Dioxide 30.0 mmol/L 22-32 Anion Gap 6.0 mmol/L 2-11 Glucose 102 mg/dL High 70-100 Blood Urea Nitrogen 29 mg/dL High 6-24 Creatinine 1.40 mg/dL 0.50-1.40 BUN/Creatinine Ratio 20.7 High 8-20 Calcium 9.8 mg/dL 8.1-9.9 Egfr Non- 50.1 >60 Egfr 64.4 >60 7 CBC No Diff 01/31/2013 [facility] White Blood 8.6 10^3/uL 4.8 -10.[address] [place] [address] [phone] Red Blood Count 4.89 10^6/uL 4.0-5.4 Hemoglobin 15.3 g/dL 14.0-18.0 Hematocrit 47 % 42-52 Mean Corpuscular Volume 96 fL High 80-94 Mean Corpuscular Hemoglobin 31 pg 27-31 Mean Corpuscular HGB Conc 33 g/dL 31-36 Red Cell Distribution Width 12 % 10.5-15 Platelet Count 213 10^3/uL 150-450 Mean Platelet Volume 9 um3 7.4-10.4 Inr/Protime 01/31/2013 [facility] Inr 0.87 0.87-0.[address] [place] [address] [phone] Laboratory test 01/31/2013 [facility] Activated 32.2 22.18- 37.18 8 finding 101 [facility] [place] [address] Thrombo Time [phone] Basic Metabolic 01/23/2013 [facility] Sodium 136 mmol/L 133- [address] [place] [address] [phone] Potassium 4.4 mmol/L 3.5-5.0 Chloride 104 mmol/L 101-111 Co2 Carbon Dioxide 27.0 mmol/L 22-32 Anion Gap 5.0 mmol/L 2-11 Glucose 222 mg/dL High 70-100 Blood Urea Nitrogen 26 mg/dL High 6-24 Creatinine 1.30 mg/dL 0.50-1.40 BUN/Creatinine Ratio 20.0 8-20 Calcium 9.2 mg/dL 8.1-9.9 Egfr Non- 54.6 >60 Egfr 70.2 >60 9 Urine Microalbumin 01/23/2013 [facility] Ur Microalbumin 10.0 mg /L [address] (Mg/L) [place] [address] [phone] Urine Creatinine 107.4 mg/dL Urine Microalbumin/Creatinine 9.3 ug/mg Less Than 31 Lipid Profile 06/12/2011 [facility] Triglyceride 174 mg/dL 40 -200 (Trig/Chol/HDL) [address] [place] [address] [phone] Cholesterol 116 mg/dL Less Than 200 11 High Density Lipoprotein 34 mg/dL Low 40-60 12 Cholesterol/HDL Ratio 3.41 AVERAGE 1-4.97 Low Density Lipoprotein 47 mg/dL Less Than 100 13 Laboratory test 06/12/2011 [facility] Vitamin B12 385 pg/mL 180-[address] [place] [id number] [phone] Folic Acid 9.8 NG/ML 2-16 PSA,Diagnostic 0.51 NG/ML 0-4 14 Comp Metabolic Panel 06/12/2011 [facility] Sodium 137 mmol/L 135-[address] [place] [address] [phone] Potassium 4.6 mmol/L 3.5-5.0 Chloride 105 mmol/L 101-111 Co2 (Carbon Dioxide) 27.0 mmol/L 22-32 Anion Gap 5.0 mmol/L 2-11 15 Glucose 137 mg/dL High 70-100 BUN 25 mg/dL High 6-24 Creatinine 1.3 mg/dL 0.50-1.40 One Over Creatinine 0.76 BUN/Creatinine Ratio 19.2 8-20 Calcium 9.3 mg/dL 8.1-9.9 Total Protein 7.1 GM/DL 6.2-8.1 Albumin 4.0 GM/DL 3.2-5.2 Globulin 3.1 GM/DL 2-4 Albumin/Globulin Ratio 1.3 1-3 Bilirubin Total 0.6 mg/dL 0.4-1.5 16 Alkaline Phosphatase 55 U/L 39-117 Alt (SGPT) 18 U/L 17-63 Ast (Sgot) 20 U/L 12-42 eGFR Non- 54.7 > 60 eGFR 70.4 > 60 17 Creatinine 24HR 06/10/2011 [facility] Creatinine Random 65.99 mg /dL [address] [place] [address] [phone] Urine Creatinine/24HR 1088.83 MG/24HR 800-2000 Hours Of Collection 24 HR 24- Urine Volume Measurement 1650 ML Microalbumin 24HR 06/10/2011 [facility] Microalbumin (MG/L) 5.0 mg/L Urine [address] [place] [address] [phone] Microalbumin (MG/24HR) 8.3 MG/24HR Less Than 30 Microalbumin (mcg/Min) 5.7 MCG/MIN Less Than 20 Hours Of Collection 24 HR Urine Volume Measurement 1650 ML 19 Basic Metabolic Panel 05/05/2010 [facility] Sodium 138 mmol/L 135-[address] [place] [address] [phone] Potassium 4.3 mmol/L 3.5-5.0 Chloride 106 mmol/L 101-111 Co2 (Carbon Dioxide) 25.0 mmol/L 22-32 Anion Gap 7.0 mmol/L 2-11 20 Glucose 136 mg/dL High 70-100 21 BUN 27 mg/dL High 6-24 Creatinine 1.30 mg/dL 0.50-1.40 One Over Creatinine 0.70 BUN/Creatinine Ratio 20.8 High 8-20 Calcium 9.2 mg/dL 8.1-9.9 22 eGFR Non- 58.5 > 60 eGFR 70.8 > 60 23 CBC With 05/05/2010 [facility] White Blood 9.3 CUMM 4.8-10.8 Electronic Diff [address] [place] [address] [phone] Red Cell Count 5.01 CUMM 4.6-6.2 Hemoglobin 16.1 g/dL 14.0-18.0 Hematocrit 46 % 42-52 Mean Corpuscular Volume 92 um3 80-94 Mean Corpuscular Hemoglob 32 pg High 27-31 Mean Corpuscular HGB Cone 35 g/dL 32-36 Redcell Distribution WDTH 13 % 10.5-15 Platelet Count 229 CUMM 150-450 Mean Platelet Volume 7.7 um3 7.4-10.4 Gran % 67.4 % 38-83 Lymph % 18.6 % Low 25-47 Mononuclear % 6.7 % 1-9 Eosinophil % 6.9 % High 0-6 Basophil % 0.4 % 0-2 Abs Lymphs 1.7 1.0-4.8 Abs Mononuclear 0.6 0-0.8 Absolute Neutrophil Count 6.2 1.5-7.7 Abs Eosinophils 0.6 0-0.6 Abs Basophils 0 0-0.2 24 Laboratory test 03/31/2009 [facility] CPK (Creatine 67 U/L 0- 200 [address] [place]) [place] [address] [phone] Lipid Profile 03/31/2009 [facility] Triglyceride 131 40-200 (Trig/Chol/HDL) [address] mg/dL [place], [place] [id number] [phone] Cholesterol 119 mg/dL Less Than 200 26 High Density Lipoprotein 30 mg/dL Low 40-60 27 Cholesterol/HDL Ratio 3.97 AVERAGE 1-4.97 Low Density Lipoprotein 63 mg/dL Less Than 100 28 Comp Metabolic Panel 03/31/2009 [facility] Sodium 138 mmol/L 135-[address] [place] [address] [phone] Potassium 4.3 mmol/L 3.5-5.0 Chloride 106 mmol/L 101-111 Co2 (Carbon Dioxide) 24.0 mmol/L 22-32 Anion Gap 8.0 mmol/L 2-11 29 Glucose 131 mg/dL High 70-100 30 BUN 25 mg/dL High 6-24 Creatinine 1.30 mg/dL 0.50-1.40 One Over Creatinine 0.70 BUN/Creatinine Ratio 19.2 8-20 Calcium 9.3 mg/dL 8.1-9.9 31 Total Protein 7.1 GM/DL 6.2-8.1 Albumin 4.2 GM/DL 3.2-5.2 Globulin 2.9 GM/DL 2-4 Albumin/Globulin Ratio 1.4 1-3 Bilirubin Total 1.0 mg/dL 0.4-1.5 32 Alkaline Phosphatase 61 U/L 39-117 Alt (SGPT) 16 U/L Low 17-63 Ast (Sgot) 19 U/L 12-42 eGFR Non- 58.7 > 60 eGFR 71.0 > 60 33 Urine Microalbumin 03/31/2009 [facility] Microalbumin (MG/L) 5.0 mg/L Random [address] [place] [address] [phone] Urine Creatinine 70.04 mg/dL [place]/Creatinine Ratio 7.1 UG/MG Less Than 30 34 Lipid Profile 11/30/2008 [facility] Triglyceride 147 mg/dL 40 -200 (Trig/Chol/HDL) [address] [place] [address] [phone] Cholesterol 114 mg/dL Less Than 200 35 High Density Lipoprotein 30 mg/dL Low 40-60 36 Cholesterol/HDL Ratio 3.80 AVERAGE 1-4.97 Low Density Lipoprotein 55 mg/dL Less Than 100 37 Liver Function 11/30/2008 [facility] Total Protein 6.6 GM/DL 6.2-8.1 Panel [address] [place] [address] [phone] Albumin 3.9 GM/DL 3.2-5.2 Globulin 2.7 GM/DL 2-4 Albumin/Globulin Ratio 1.4 1-3 Bilirubin Total 0.8 mg/dL 0.4-1.5 Bilirubin Direct 0.1 mg/dL 0.1-0.5 Indirect Bilirubin 0.7 mg/dL 0.1-0.75 Alkaline Phosphatase 62 U/L 39-117 Alt (SGPT) 18 U/L 17-63 Ast (Sgot) 17 U/L 12-42 Laboratory test 11/30/2008 [facility] Hemoglobin A1c 8.3 % High <6.0 38 finding [address] [place] [address] [phone] 1 Test Performed by: [facility] [place] [place] [address] Nut Culler: Doe Sousa II, M.D., Ph.D. 2 Because ethnic data is not always readily available, this report includes an eGFR for both -Americans and non- Americans. The National Kidney Disease Education Program (NKDEP) does not endorse the use of the MDRD equation for patients that are not between the ages of 18 and 70, are , have extremes of body size, muscle mass, or nutritional status, or are non- or non-. According to the National Kidney Foundation, irrespective of diagnosis, the stage of the disease is based on the level of kidney function: Stage Description GFR(mL/min/1.73 m(2)) 1 Kidney damage with normal or decreased GFR 90 2 Kidney damage with mild decrease in GFR 60-89 3 Moderate decrease in GFR 30-59 4 Severe decrease in GFR 15-29 5 Kidney failure <15 (or dialysis) 3 SURGERY 05/06/2014 PER PATIENT 4 1 SST, 1PST 5 Because ethnic data is not always readily available, this report includes an eGFR for both -Americans and non- Americans. The National Kidney Disease Education Program (NKDEP) does not endorse the use of the MDRD equation for patients that are not between the ages of 18 and 70, are , have extremes of body size, muscle mass, or nutritional status, or are non- or non-. According to the National Kidney Foundation, irrespective of diagnosis, the stage of the disease is based on the level of kidney function: Stage Description GFR(mL/min/1.73 m(2)) 1 Kidney damage with normal or decreased GFR 90 2 Kidney damage with mild decrease in GFR 60-89 3 Moderate decrease in GFR 30-59 4 Severe decrease in GFR 15-29 5 Kidney failure <15 (or dialysis) 6 Because ethnic data is not always readily available, this report includes an eGFR for both -Americans and non- Americans. The National Kidney Disease Education Program (NKDEP) does not endorse the use of the MDRD equation for patients that are not between the ages of 18 and 70, are , have extremes of body size, muscle mass, or nutritional status, or are non- or non-. According to the National Kidney Foundation, irrespective of diagnosis, the stage of the disease is based on the level of kidney function: Stage Description GFR(mL/min/1.73 m(2)) 1 Kidney damage with normal or decreased GFR 90 2 Kidney damage with mild decrease in GFR 60-89 3 Moderate decrease in GFR 30-59 4 Severe decrease in GFR 15-29 5 Kidney failure <15 (or dialysis) 7 Because ethnic data is not always readily available, this report includes an eGFR for both -Americans and non- Americans. The National Kidney Disease Education Program (NKDEP) does not endorse the use of the MDRD equation for patients that are not between the ages of 18 and 70, are , have extremes of body size, muscle mass, or nutritional status, or are non- or non-. According to the National Kidney Foundation, irrespective of diagnosis, the stage of the disease is based on the level of kidney function: Stage Description GFR(mL/min/1.73 m(2)) 1 Kidney damage with normal or decreased GFR 90 2 Kidney damage with mild decrease in GFR 60-89 3 Moderate decrease in GFR 30-59 4 Severe decrease in GFR 15-29 5 Kidney failure <15 (or dialysis) 8 CALL RESULTS TO [id number] 9 Because ethnic data is not always readily available, this report includes an eGFR for both -Americans and non- Americans. The National Kidney Disease Education Program (NKDEP) does not endorse the use of the MDRD equation for patients that are not between the ages of 18 and 70, are , have extremes of body size, muscle mass, or nutritional status, or are non- or non-. According to the National Kidney Foundation, irrespective of diagnosis, the stage of the disease is based on the level of kidney function: Stage Description GFR(mL/min/1.73 m(2)) 1 Kidney damage with normal or decreased GFR 90 2 Kidney damage with mild decrease in GFR 60-89 3 Moderate decrease in GFR 30-59 4 Severe decrease in GFR 15-29 5 Kidney failure <15 (or dialysis) 10 Microalbuminuria in a random sample is defined as: Microalbumin/Creatinine ratio of 30-299 ug/mg. 11 CHOLESTEROL INTERPRETATION: Desirable: Less than 200 MG/DL Borderline-High Risk: 200-239 MG/DL High-Risk: 240 MG/DL and over 12 HDL INTERPRETATION: Undesirable: High Risk: Less than 40 MG/DL Desirable: Low Risk: Greater than 60 MG/DL 13 LDL INTERPRETATION: Low Risk Optimal Level: LDL Less than 100 MG/DL Near or Above Optimal: LDL 100-129 MG/DL Borderline High Risk: LDL 130-159 MG/DL High Risk: LDL 160-189 MG/DL Very High Risk: LDL Greater than 189 MG/DL 14 * SERUM LEVELS OF PSA MEASURED USING THE LORETO MiName ACCESS HYBRITECH IMMUNOASSAY SHOULD NOT BE INTERPRETED ABSOLUTE EVIDENCE OF THE PRESENCE OR ABSENCE OF DISEASE. THE PSA VALUE SHOULD BE USED IN CONJUNCTION WITH OTHER PERTINENT CLINICAL DIAGNOSTIC PROCEDURES. A PSA value in the range of 0.1 to 0.6 ng/ml is indeterminate if being used as an indicator of recurrent or residual disease. . 15 Anion gap measurement may be of limited value in the presence of any alkalosis, especially in a combined acid base disorder. . 16 A metabolite of Naproxen, O-desmethylnaproxen, has been shown to interfere with the Jendrassik-Jemma method for measuring total bilirubin. Samples from patients who have taken Naproxen have shown spurious elevation in total bilirubin levels. 17 Because ethnic data is not always readily available, this report includes an eGFR for both -Americans and non- Americans. The National Kidney Disease Education Program (NKDEP) does not endorse the use of the MDRD equation for patients that are not between the ages of 18 and 70, are , have extremes of body size, muscle mass, or nutritional status, or are non- or non-. According to the National Kidney Foundation, irrespective of diagnosis, the stage of the disease is based on the level of kidney function: Stage Description GFR(mL/min/1.73 m(2)) 1 Kidney damage with normal or decreased GFR 90 2 Kidney damage with mild decrease in GFR 60-89 3 Moderate decrease in GFR 30-59 4 Severe decrease in GFR 15-29 5 Kidney failure <15 (or dialysis) 18 COLLECTED FROM [id number] THROUGH [id number]. 19 MICROALBUMIN CONCENTRATIONS ARE USED TO CLASSIFY PATIENTS NORMAL: LESS THAN 30 MG/24HRS MICROALBUMINURIA: 30-300 MG/24HRS CLINICAL ALBUMINURIA: GREATER THAN 300 MG/24HRS THE [employer] POSITION STATEMENT ON DIABETIC NEPHROPATHY STATES THAT MICROALBUMINURIA IS PRESENT IF URINARY ALBUMIN EXCRETION EXCEEDS 30 MG/24HRS (20 MCG/MIN). THE THRESHOLD FOR CLINICAL ALBUMINURIA IS REACHED AT 300 MG/24HRS (200 MCG/MIN). THE CLASSIFICATION OF A PATIENT SHOULD BE BASED UPON AT LEAST 2 OF 3 ABNORMAL RESULTS ON SPECIMENS COLLECTED WITHIN A 3 TO 6 MONTH TIME FRAME. REFERENCE: [employer], POSITION STATEMENT, DIABETIC NEPHROPATHY, DIABETES CARE, 20, SUPPLEMENT 1, S24-S27, 1996. . 20 Anion gap measurement may be of limited value in the presence of any alkalosis, especially in a combined acid base disorder. . 21 Note change in reference range as of 05/14/08. The change was based on recommendations from the [place] [employer]. 22 Please note change in reference range effective 08 . 23 Because ethnic data is not always readily available, this report includes an eGFR for both -Americans and non- Americans. The National Kidney Disease Education Program (NKDEP) does not endorse the use of the MDRD equation for patients that are not between the ages of 18 and 70, are , have extremes of body size, muscle mass, or nutritional status, or are non- or non-. According to the National Kidney Foundation, irrespective of diagnosis, the stage of the disease is based on the level of kidney function: Stage Description GFR(mL/min/1.73 m(2)) 1 Kidney damage with normal or decreased GFR 90 2 Kidney damage with mild decrease in GFR 60-89 3 Moderate decrease in GFR 30-59 4 Severe decrease in GFR 15-29 5 Kidney failure <15 (or dialysis) 24 Lymphopenia % 25 PATIENT MAY HAVE RESULTS PER DOCTOR'S AUTHORIZATION. Questions regarding this report should be directed to your doctor. 26 CHOLESTEROL INTERPRETATION: Desirable: Less than 200 MG/DL Borderline-High Risk: 200-239 MG/DL High-Risk: 240 MG/DL and over 27 HDL INTERPRETATION: Undesirable: High Risk: Less than 40 MG/DL Desirable: Low Risk: Greater than 60 MG/DL 28 LDL INTERPRETATION: Low Risk Optimal Level: LDL Less than 100 MG/DL Near or Above Optimal: LDL 100-129 MG/DL Borderline High Risk: LDL 130-159 MG/DL High Risk: LDL 160-189 MG/DL Very High Risk: LDL Greater than 189 MG/DL 29 Anion gap measurement may be of limited value in the presence of any alkalosis, especially in a combined acid base disorder. . 30 Note change in reference range as of 05/14/08. The change was based on recommendations from the [place] [employer]. 31 Please note change in reference range effective 08 . 32 A metabolite of Naproxen, O-desmethylnaproxen, has been shown to interfere with the [place]rass[place] method for measuring total bilirubin. Samples from patients who have taken Naproxen have shown spurious elevation in total bilirubin levels. 33 Because ethnic data is not always readily available, this report includes an eGFR for both -Americans and non- Americans. The National Kidney Disease Education Program (NKDEP) does not endorse the use of the MDRD equation for patients that are not between the ages of 18 and 70, are , have extremes of body size, muscle mass, or nutritional status, or are non- or non-. According to the National Kidney Foundation, irrespective of diagnosis, the stage of the disease is based on the level of kidney function: Stage Description GFR(mL/min/1.73 m(2)) 1 Kidney damage with normal or decreased GFR 90 2 Kidney damage with mild decrease in GFR 60-89 3 Moderate decrease in GFR 30-59 4 Severe decrease in GFR 15-29 5 Kidney failure <15 (or dialysis) 34 MICROALBUMINURIA IN A RANDOM SAMPLE IS DEFINED : MICROALBUMIN/CREATININE RATIO OF 30-299 ug/mg. . 35 CHOLESTEROL INTERPRETATION: Desirable: Less than 200 MG/DL Borderline-High Risk: 200-239 MG/DL High-Risk: 240 MG/DL and over 36 HDL INTERPRETATION: Undesirable: High Risk: Less than 40 MG/DL Desirable: Low Risk: Greater than 60 MG/DL 37 LDL INTERPRETATION: Low Risk Optimal Level: LDL Less than 100 MG/DL Near or Above Optimal: LDL 100-129 MG/DL Borderline High Risk: LDL 130-159 MG/DL High Risk: LDL 160-189 MG/DL Very High Risk: LDL Greater than 189 MG/DL 38 THERAPEUTIC TARGET FOR THE TREATMENT OF DIABETES MELLITUS PATIENTS IS <7% HBA1C, AND IN SELECTIVE PATIENTS <6.0%. PLEASE REFER TO [employer] DIABETIC CARE GUIDELINES FOR FURTHER INFORMATION. Procedures Date Code Description Status 09/04/2018 10863 EKG Tracing & Interpretation Completed 04/19/2017 85452 Holter Monitor Review (24 hr)dr review & interp only Completed 04/19/2017 45599 EKG Tracing & Interpretation Completed 04/18/2017 11222 ECG Monitor/Recording W/Visual Superimposition Scanning Completed 04/17/2017 33187 Treadmill Interp/Report Only Completed 04/17/2017 92699 Stress Test Supervsn W/Out I/R Completed 04/17/2017 37710 EKG, Interpretation Only Completed 09/04/2016 62335 EKG Tracing & Interpretation Completed 08/24/2015 71949 Treadmill Interp/Report Only Completed 08/24/2015 93483 Stress Test Supervsn W/Out I/R Completed 08/09/2015 55565 EKG Tracing & Interpretation Completed 08/05/2014 71474 ECHO Transthorasic Realtime 2D W Doppler & Color Flow Hosp Completed 07/01/2014 36315 EKG Tracing & Interpretation Completed 05/28/2014 99326 EKG Tracing & Interpretation Completed 05/01/2014 42011 Coronary Angiography With Catheter Placement In [facility] Completed Grafts 05/01/2014 44156 EKG, Interpretation Only Completed 04/17/2014 72898 ECHO Transthoracic, Real-Time 2D With Doppler And Color Completed Flow 04/05/2014 22417 EKG, Interpretation Only Completed 04/04/2014 53670 EKG, Interpretation Only Completed 04/03/2014 17365 Cardiac Cath,LT Hrtmincl Intraprocedural Ink LT Ventricul Completed Mammary 04/03/2014 84434 EKG, Interpretation Only Completed 04/03/2014 95108 Revascularization Coronary Artery Bypass Graft Completed 01/28/2014 46658 EKG, Interpretation Only Completed 08/25/2013 98235 EKG Tracing & Interpretation Completed 01/31/2013 63229 Inj During Cath,For Supravalvuar Aortography Add On Code Completed 01/31/2013 30169 Cardiac Cath,LT Hrtmincl Intraprocedural Ink LT Ventricul Completed Mammary 01/31/2013 12996 Left Heart Cath. Incl S/I Coronaries, Angio S/I V Gram If Completed Done 01/31/2013 17088 Coronary Angiography With Catheter Placement In [facility] Completed Grafts 01/31/2013 01575 Cath PLMT&NJX L Ventriculog Img S&I Completed 01/31/2013 77776 Left Health Catheterization W/Inj For Left Completed Ventriculography,S&I 01/31/2013 39547 EKG, Interpretation Only Completed 01/21/2013 46125 ECHO Transthorasic Realtime 2D W Doppler & Color Flow Hosp Completed 01/21/2013 18378 Pulse Wave/Continuous-Interp.RPT Completed 01/21/2013 32541 Color Flow Doppler/Interp & Reprt Completed 01/15/2013 17308 ECHO Stress Test Incl Perf Contiuous ekg Monitoring W/Phys Completed Superv 10/17/2012 70740 EKG Tracing & Interpretation Completed 04/27/2011 86262 EKG Tracing & Interpretation Completed 12/10/2009 70738 EKG Tracing & Interpretation Completed 06/14/2009 26441 ECHO Stress Test Incl Perf Contiuous ekg Monitoring W/Phys Completed Superv 07/29/2008 45365 ECHO/Stress Completed 07/29/2008 43607 ECHO/Stress Completed 07/29/2008 97494 ECHO/Stress Completed 07/29/2008 62445 Stress Test Completed 07/29/2008 96923 Stress Test Completed 06/04/2008 72162 EKG Tracing & Interpretation Completed 09/09/2007 43080 Stress Test Completed 09/09/2007 32366 Stress Test Completed 09/09/2007 19574 ECHO/Stress Completed 09/09/2007 84005 ECHO/Stress Completed 09/09/2007 63541 ECHO/Stress Completed 06/04/2007 60633 EKG Tracing & Interpretation Completed 10/05/2006 62398 EKG Tracing & Interpretation Completed 08/20/2006 36764 ECHO/Stress Completed 08/20/2006 96853 Stress Test Completed 08/20/2006 47208 Stress Test Completed 07/20/2006 55345 EKG Tracing & Interpretation Completed 08/09/2005 57176 Echocardiogram Completed 08/09/2005 34928 Pulse Doppler & Continuous Wave Completed 08/09/2005 35552 Color Doppler Completed 07/10/2005 11474 ECHO/Stress Completed 07/10/2005 16266 Stress Test Completed 06/20/2004 57925 ECHO/Stress Completed 06/20/2004 73630 Stress Test Completed 05/06/2003 74631 ECHO/Stress Completed 05/06/2003 00055 Stress Test Completed 04/02/2003 16761 EKG Tracing & Interpretation Completed Encounters Type Date Location Provider Dx Diagnosis Office Visit 03/25/2019 Pulmonology And Trisha Homero Mendez98.4 Other disorders 9:00a Sleep Services Of of lung [facility] J47.9 Bronchiectasis, uncomplicated Office Visit 09/04/2018 1:15p [facility] Augustin Miguel Angel I25.10 [facility] heart Of Suleman Calles M.D., disease of FACC, FASNC [place] coronary artery w/o ang pctrs Z95.1 Presence of aortocoronary bypass graft Z98.61 Coronary angioplasty status Office Visit 08/26/2018 Pulmonology And Trisha J47.1 Bronchiectasis with 12:00p Sleep Services Of MD Andrea (acute) exacerbation [facility] Office Visit 09/03/2017 [facility] Junior Adrian, I25.10 Athscl heart disease 8:20a Of [facility] AT [facility].D., FACC, of [place] coronary FSCAI artery w/o ang pctrs E78.5 Hyperlipidemia, unspecified I10 Essential (primary) hypertension Office Visit 04/23/2017 1:15p Pulmonology And Trisha R07.9 Chest pain, Sleep Services Of MD Andrea unspecified [facility] J47.9 Bronchiectasis, uncomplicated Office Visit 04/19/2017 3:40p [facility] Junior Adrian, R07.9 Chest pain, Of [facility] AT [facility], [facility], unspecified FSCAI I10 Essential (primary) hypertension I25.10 Athscl heart disease of [place] coronary artery w/o ang pctrs Office Visit 04/16/2017 12:35p [facility]ota R07.9 Chest pain, Assoc,aline Shay MD unspecified Hospitalists I25.119 Athscl heart disease of [place] cor art w unsp ang pctrs I10 Essential (primary) hypertension E11.9 Type 2 diabetes mellitus without complications Office Visit 09/04/2016 9:40a [facility] Junior Adrian, I10 Essential (primary) Of [facility] AT [facility], [facility], hypertension FSCAI E78.5 Hyperlipidemia, unspecified I25.10 Athscl heart disease of [place] coronary artery w/o ang pctrs Office Visit 08/11/2016 Pulmonology And Trisha J47.9 Bronchiectasis, 8:15a Sleep Services Of MD Andrea uncomplicated [facility] J45.20 Mild intermittent asthma, uncomplicated Office Visit 07/20/2016 Pulmonology And Trisha J47.9 Bronchiectasis, 8:30a Sleep Services Of MD Andrea uncomplicated [facility] J45.20 Mild intermittent asthma, uncomplicated Office Visit 11/05/2015 Pulmonology And Trisha J47.9 Bronchiectasis, 1:15p Sleep Services Of MD Andrea uncomplicated [facility] Office Visit 08/30/2015 [facility] Junior Adrian, I10 Essential ( primary) 3:40p Of [facility] AT [facility] FAC, hypertension FSCAI E78.5 Hyperlipidemia, unspecified 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, unspecified Office Visit 08/09/2015 11:20a [facility] Junior Adrian, I25.9 Chronic ischemic Of [facility]er AT [facility].Marily, [facility], heart disease, FSCAI unspecified E78.5 Hyperlipidemia, unspecified I10 Essential (primary) hypertension Office Visit 05/12/2015 Pulmonology And Trisha 494.0 Bronchiectasis 1:00p Sleep Services Of MD Andrea Without Acute [facility]er Exacerbation 493.10 Asthma Intrinsic Unspecified 486 Pneumonia Organism Unspec Office Visit 02/10/2015 11:00a Pulmonology And Trisha 493.10 Asthma Intrinsic Sleep Services Of MD Andrea Unspecified [facility] 486 Pneumonia Organism Unspec Office Visit 08/18/2014 3:00p [facility] Junior Adrian, 414.9 Ischemic Heart Of [facility], [facility], Disease Chronic FSCAI Unspec 424.0 Mitral Valve Disorder 272.4 Hyperlipidemia Other Unspec 424.1 Aortic Valve Disorder Office Visit 07/01/2014 2:00p [facility] Junior Adrian, 414.9 Ischemic Heart Of [facility], [facility], Disease Chronic FSCAI Unspec 424.0 Mitral Valve Disorder 272.4 Hyperlipidemia Other Unspec Office Visit 05/28/2014 3:00p [facility] Junior Adrian, 414.9 Ischemic Heart Of [facility], [facility], Disease Chronic FSCAI Unspec 424.0 Mitral Valve Disorder 272.4 Hyperlipidemia Other Unspec Office Visit 05/05/2014 [facility] Junior Adrian, V58.41 Postoperative Wound 2:45p Cardiology Manpreet Carter [facility], Closure Encounter [facility] AT [facility] Office Visit 04/16/2014 Rubio Marks 414.9 Ischemic Heart 4:00p Cardiology Emma Pinto Disease Chronic Unspec 410.70 Myocardial Infarc Acute Subendocardial Episode Care Unspec 411.1 Coronary Syndrome Intermediate Office Visit 04/10/2014 2:15p [place] Adrian V58.41 Postoperative Wound Cardiology Manpreet Carter [facility] [facility], Closure Encounter [facility]er AT [facility] 414.9 Ischemic Heart Disease Chronic Unspec Office Visit 04/05/2014 [facility] Goins 410.70 Myocardial Infarc 8:20a Cardiology Emma Ltuz Acute Subendocardial Episode Care Unspec 411.1 Coronary Syndrome Intermediate 414.9 Ischemic Heart Disease Chronic Unspec Office Visit 04/04/2014 [facility] 414.01 Coronary 8:12a Nahid Lutz M.D. Atherosclerosis [place] 794.31 Electrocardiogram (ECG) (EKG) Abnormal 786.50 Pain Chest Unspec Office Visit 04/03/2014 [facility] 410.90 Myocardial 7:53a Emma Pinto Infarc Acute Unspec Site Episode Care Unspec Office Visit 01/27/2014 [facility] 465.9 URI Upper 1:37p aline Us II, M.D. Respiratory Hospitalists Infections Acute Unspec Sites 780.60 Fever, Unspecified 584.9 Acute Kidney Failure, Unspecified 414.00 Coronary Atherosclerosis Unspec Type Vessel [place]raft Office Visit 08/25/2013 [facility] 414.01 Coronary 3:40p Cardiology Emma Pinto Atherosclerosis [place] 401.1 Hypertension Benign 272.0 Hypercholesterolemia Pure V45.81 Aortocoronary Bypass Postsurgical Status Office Visit 02/05/2013 [facility] 414.01 Coronary 2:00p Nahid Lutz M.D. Atherosclerosis [place] 401.1 Hypertension Benign 272.0 Hypercholesterolemia Pure V45.81 Aortocoronary Bypass Postsurgical Status Office Visit 01/31/2013 [facility] 414.01 Coronary 11:30a Nahid Lutz M.D. Atherosclerosis [place] 401.1 Hypertension Benign 786.50 Pain Chest Unspec 786.05 Shortness Of Breath v45.81 Aortocoronary Bypass Postsurgical Status Office Visit 01/15/2013 [facility] ECHO 414.01 Coronary 3:15p Cardiology Schedule Atherosclerosis [place] 250.00 Diabetes Mellitus W/O Compl Type II Or Unspec Controlled 272.0 Hypercholesterolemia Pure 401.1 Hypertension Benign Office Visit 10/17/2012 [facility] 414.01 Coronary 9:40a Cardiology Emma Pinto Atherosclerosis [place] 250.00 Diabetes Mellitus W/O Compl Type II Or Unspec Controlled 272.0 Hypercholesterolemia Pure 785.2 Murmur Cardiac Undiagnosed Office Visit 04/27/2011 10:40a [facility] 401.1 Ria Pinto M.D. Benign 414.01 Coronary Atherosclerosis [place] 250.00 Diabetes Mellitus W/O Compl Type II Or Unspec Controlled 272.0 Hypercholesterolemia Pure Office Visit 12/10/2009 3:00p [facility] 401.1 Ria Pinto M.D. Benign 414.01 Coronary Atherosclerosis [place] 250.00 Diabetes Mellitus W/O Compl Type II Or Unspec Controlled 272.0 Hypercholesterolemia Pure Office Visit 06/04/2008 [facility] 414.01 Coronary 8:40a Cardiology Emma Pinto Atherosclerosis [place] 401.1 Hypertension Benign 250.00 Diabetes Mellitus W/O Compl Type II Or Unspec Controlled 272.0 Hypercholesterolemia Pure Office Visit 06/04/2007 [facility] 414.01 Coronary 9:20a Cardiology Emma Pinto Atherosclerosis [place] 401.1 Hypertension Benign 250.00 Diabetes Mellitus W/O Compl Type II Or Unspec Controlled 272.0 Hypercholesterolemia Pure 785.2 Murmur Cardiac Undiagnosed Office Visit 01/31/2007 [facility] 414.01 Coronary 10:00a Cardiology Emma Pinto Atherosclerosis [place] 401.1 Hypertension Benign 250.00 Diabetes Mellitus W/O Compl Type II Or Unspec Controlled Office Visit 11/22/2006 [facility] 414.01 Coronary 10:00a Nahid Pinto M.D. Atherosclerosis [place] 401.0 Hypertension Malignant 272.0 Hypercholesterolemia Pure 250.00 Diabetes Mellitus W/O Compl Type II Or Unspec Controlled Office Visit 10/05/2006 [facility] 414.01 Coronary 9:40a Cardiology Emma Pinto Atherosclerosis [place] 401.0 Hypertension Malignant 272.0 Hypercholesterolemia Pure Office Visit 07/20/2006 [facility] 414.01 Coronary 2:20p Cardiology Emma Pinto Atherosclerosis [place] 401.0 Hypertension Malignant 272.0 Hypercholesterolemia Pure Office Visit 07/10/2005 [facility] 414.01 Coronary 11:00a Cardiology Emma Pinto Atherosclerosis [place] 785.2 Murmur Cardiac Undiagnosed 250.00 Diabetes Mellitus W/O Compl Type II Or Unspec Controlled V45.81 Aortocoronary Bypass Postsurgical Status Office Visit 06/20/2004 [facility] 414.01 Coronary 11:00a Nahid Pinto M.D. Atherosclerosis [place] 401.1 Hypertension Benign 250.00 Diabetes Mellitus W/O Compl Type II Or Unspec Controlled 272.0 Hypercholesterolemia Pure Office Visit 04/02/2003 [facility] 414.01 Coronary 1:40p Cardiology Emma Pinto Atherosclerosis [place] 250.00 Diabetes Mellitus W/O Compl Type II Or Unspec Controlled 785.2 Murmur Cardiac Undiagnosed murmur [place] 272.4 Hyperlipidemia Other Unspec Plan of Treatment 03/25/2019 - Trisha Mendez MDJ98.4 Other disorders of lungNew Xrays:CT Chest W /O, Ordered: 03/25/19Follow up:1 weekJ47.9 Bronchiectasis, uncomplicatedNew Orders:PFTW/Spirometry Vol Pre/Post Bronchdilat Dlco Complete, Ordered: 03/25/19
[2019-04-21 16:51] VITALS: BP 130/68
--- NOTE | 2019-04-21 17:20 | UC ---
Skin Complaint HPI - HPI Summary HPI Summary: 78 year old male with h/o DM II presents with multiple small, raised bumps that are very pruritic over his b/l LEs. [facility], stayed in a room with his , both woke with small raised bumps, hers resolved within 24 hours, his continued and continue to be itchy. upon returning, both sleep in same bed, continues to be symptom free. No fever, chills. + area of abrasion where fell, no symptoms. no headaches, fevers. no bites/ bumps over arms, armpits, back. nipples. 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/Marketing Education Teacher - Onset/Duration: Sudden Onset, Lasting Days, Still Present Timing: Constant Current Severity: None Pain Intensity: 0 Pain Scale Used: 0-10 Numeric Location: Discrete - b/l LEs - Allergy/Home Medications Allergies/Adverse Reactions: Allergies Allergy/AdvReac Type Severity Reaction Status Date / Time SEASONAL HAYFEVER Allergy ITCHY Uncoded 04/21/19 16:51 WATERY EYES Home Medications: Home Medications tiZANidine TAB* [Zanaflex TAB*] 2 mg PO BEDTIME PRN 04/21/19 [History Confirmed 04/21/19] PMH/Surg Hx/FS Hx/Imm Hx Previously Healthy: Yes - Surgical History Surgical History: Yes Surgery Procedure, Year, and Place: left cataract 2003. bypass 1993. cardiac stents - Family History Known Family History: Positive: Non-Contributory Negative: Cardiac Disease, Diabetes - Social History Alcohol Use: Daily Alcohol Amount: 4 oz red wine Substance Use Type: None Smoking Status (MU): Former Smoker Type: Cigarettes Amount Used/How Often: 0.5 pack per day Length of Time of Smoking/Using Tobacco: 30 Have You Smoked in the Last Year: No When Did the Patient Quit Smoking/Using Tobacco: 1990 - Immunization History Most Recent Influenza Vaccination: 2012 Most Recent Tetanus Shot: unknown Most Recent Pneumonia Vaccination: Had it, date unknown Review of Systems All Other Systems Reviewed And Are Negative: Yes Constitutional: Positive: Negative Skin: Positive: Rash - raised bumps Is Patient Immunocompromised?: No Physical Exam Triage Information Reviewed: Yes Appearance: Well-Appearing, No Pain Distress, Well-Nourished Vital Signs: Initial Vital Signs Temp 98.5 F 04/21/19 16:45 Pulse 76 04/21/19 16:45 Resp 16 04/21/19 16:45 BP 130/68 04/21/19 16:45 Pulse Ox 98 04/21/19 16:45 Vital Signs Reviewed: Yes Eyes: Positive: Conjunctiva Clear ENT: Positive: Hearing grossly normal Musculoskeletal Exam: Normal Musculoskeletal: Positive: Strength Intact, ROM Intact Neurological Exam: Normal Psychological Exam: Normal Skin: Positive: Other - small raised bumps, no pattern, no coalescing, over b/l LE's with excoriations. Course/Dx - Course Course Of Treatment: Contact Dermatitis from insect bites, possible mites or fleas - Wash clothing well - hydrocortisone ointment over itchy areas, do not use on face, three times a day - Benadryl at night to help with sleeping, decrease itching - MOnitor areas- if increased redness, please follow up with primary physician or return here with increased pain, redness, swelling - FOllow up if no improvement within 3-5 days - Differential Diagnoses - Skin Complaint Differential Diagnoses: Angioedema, Drug Rash, Eczema, Head Lice, Poison [place], Poison [place], Tinea, VRE - Diagnoses Provider Diagnosis: Contact dermatitis Discharge - Sign-Out/Discharge Documenting (check all that apply): Patient Departure All imaging exams completed and their final reports reviewed: No Studies - Discharge Plan Condition: Good Disposition: HOME Prescriptions: diPHENhydraMINE PO* [Benadryl PO 25 MG TAB*] 25 mg PO BEDTIME PRN #30 tab PRN Reason: Itching Hydrocortisone 1% Oint(NF) [Hydrocortisone 1% Oint (NF)] 2 gm TOPICAL TID PRN # 1 tube PRN Reason: Itching Hydrocortisone 1% Oint(NF) [Hydrocortisone 1% Oint (NF)] 1 applic TOPICAL TID PRN #1 tube PRN Reason: Itching Patient Education Materials: Contact Dermatitis (ED) Referrals: Roderick Gutierrez MD [Primary Care Provider] - Additional Instructions: Contact Dermatitis from insect bites, possible mites or fleas - Wash clothing well - hydrocortisone ointment over itchy areas, do not use on face, three times a day - Benadryl at night to help with sleeping, decrease itching - MOnitor areas- if increased redness, please follow up with primary physician or return here with increased pain, redness, swelling - FOllow up if no improvement within 3-5 days - Billing Disposition and Condition Condition: GOOD Disposition: Home - Attestation Statements Provider Attestation: I was available for consult. This patient was seen by the MERARY. The patient was not presented to, seen by, or examined by me. -Durga
== END 2019-04-21 17:40 | disposition home or self-care (01) ==
LOC: UCEAST 16:25
DX: L25.9 Unspecified contact dermatitis, unspecified cause (principal); Z87.891 Personal history of nicotine dependence
CPT/HCPCS: 99212; G0463

== ENCOUNTER 2019-05-01 17:36 | Emergency (ER) | payer MEDICARE ==
--- OUTSIDE RECORDS SUMMARY | 2019-05-01 17:44 | XMS REPORT | Continuity of Care Document ---
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 Onset: 10/17/2012 Type 2 diabetes mellitus Kaiser Pinto M.D. Onset: 10/17/2012 Pure hypercholesterolemia Kaiser Pinto M.D. Onset: 10/17/2012 Heart murmur Kaiser Pinto M.D. Onset: 10/17/2012 Benign essential hypertension Guerda Lutz M.D. Onset: 02/05/2013 Aortocoronary Bypass Postsurgical Status Guerda Lutz M.D. Onset: 02/05/2013 Chronic ischemic heart disease Junior Adrian M.D., [facility], Onset: 04/10/2014 [facility] Mitral valve disorder [facility] Schedule Onset: 04/17/2014 Hyperlipidemia Junior Adrian M.D., [facility], Onset: 05/28/2014 [facility] Aortic valve disorder Junior Adrian M.D., [facility], Onset: 08/18/2014 [facility] Intrinsic asthma without status Trisha Mendez MD Onset: 02/10/2015 asthmaticus Pneumonia Trisha Mendez MD Onset: 02/10/2015 Bronchiolectasis Trisha Mendez MD Onset: 05/12/2015 Essential hypertension Junior Adrian M.D., [facility], Onset: 08/09/2015 [facility] Chest pain Junior Adrian M.D., [facility], Onset: 04/19/2017 [facility] Family History Date Family Member(s) Observation Comments [...] Use Denies Drug Use Smoking Status Reviewed: 05/01/19 Patient is a former quit 25yrs ago smoker Exercise Type/Frequency Exercises regularly Allergies, Adverse Reactions, Alerts Active Allergies Reaction Severity Comments Date Niaspan raised HgB Aic 04/02/2003 Diazepam 05/01/2019 Medications Active Medications SIG Qnty Indications Ordering Provider Date Levaquin 1 tab daily for 7tabs Trisha Andrea, 03/25/2019 500mg Tablets 7days MD Levaquin 1 tab daily for 10tabs J47.1 Trisha Andrea, 08/26/2018 500mg Tablets 10 days- last MD dose tomorrow Atenolol 1 by mouth daily 60tabs [facility] Marks 04/16/2014 25mg Tablets Emma Pinto Nitrostat one sl q5min up 25tabs Junior Adrian, 04/16/2014 0.4mg Tablets to 3 doses as Emma, [facility], [facility] Sub needed Aspirin Enteric qd [facility] 04/01/2003 Priyank Pinto M.D. 81mg Tablets Pravastatin Sodium 1 tablet daily at 90tabs Unknown 40mg bedtime Tablets Metformin HCL ER 1 po three times 30tabs Unknown 500mg daily Tablets ER 24HR Clopidogrel Bisulfate 1 by mouth every 90tabs Junior Adrian, day Emma, [facility], [facility] 75mg Tablets History Medications Amlodipine Besylate 1 by mouth every 30tabs I10 Junior Adrian, 04/19/2017 - 2.5mg day ( PT Does Emma, [facility], 08/25/2018 Tablets Not Take) [facility] Azithromycin 1 tablet by 7tabs [facility] 12/07/2016 - 500mg Tablets mouth daily for MD Andrea 04/17/2017 7 days Prednisone 4 tabs day#1, 3 21units [facility] 12/01/2016 - 10mg (21) TBPK tabs day#2, 2 MD Andrea 04/17/2017 tabs day#3, 1 tab for 7 days Levaquin 1 by mouth every 7tabs Trisha 12/01/2016 - 500mg Tablets day MD Andrea 04/17/2017 Flutter use as 1units J47.9 [facility] 07/20/2016 - Device instructed twice MD Andrea [...] 60tabs Kaiser Marks 04/27/2011 - 500mg Tablets Emam Pinto 10/17/2012 Lipitor one tab po qhs [...] 06/04/2007 - 110mcg/Act Aerosol Emma Pinto 12/10/2009 [facility] 1 po qd 90tabs Kaiser Marks 01/31/2007 - 2.5mg Tablets Emma Pinto 06/04/2007 Lisinopril 1 po qpm 90tabs Kaiser Marks 11/22/2006 - 20mg Tablets Emma Pinto 04/28/2011 [facility] 1 po qam 90tabs Kaiser Marks 10/05/2006 - 5mg Tablets Emma Pinto 01/31/2007 Advair Diskus bid [facility] 10/05/2006 - 100mcg;50mcg Emma Pinto 06/04/2007 Inhaler Atenolol 1 po qpm 90tabs Kaiser Marks 08/20/2006 - 25mg Tablets Emma Pinto 04/16/2014 [facility] 1 po qd 90tabs Kaiser Marks 08/20/2006 - 2.5mg Tablets Emma Pinto 10/05/2006 Hydrochlorothiazide 1 po qd [facility] 08/02/2006 - 25mg Emma Pinto 08/20/2006 Tablets Hydrochlorothiazide 1 po qd 90caps [facility] 07/20/2006 - 12.5mg Emma Pinto 08/02/2006 Capsules Metformin 1 po bid [facility] 07/20/2006 - 1,000mg Tablets Emma Pinto 06/04/2007 Atenolol 1 po qd [facility] 07/20/2006 - 50mg Tablets Emma Pinto 08/20/2006 [...] pain Vital Signs Date Vital Result Comment 05/01/2019 11:19am Height 67 inches 5'7" Weight 124.00 lb Heart Rate 68 /min BP Systolic Sitting 130 mmHg Lue regular cuff BP Diastolic Sitting 74 mmHg Lue regular cuff Respiratory Rate 12 /min O2 % BldC Oximetry 96 % BMI (Body Mass Index) 19.4 kg/m2 03/25/2019 9:02am Height 67 inches 5'7" Weight [...] Test Result H/L Range Note Xray 04/24/20 [facility] CT Chest W/O <pending> [address] [place] [address] [phone] Immunoglobulins 02/11/20 [facility] Immunoglobulin G 1330 Normal 767 - 1 Serum Quant [address] mg/dL 1590 [place] [address] [phone] Immunoglobulin M 49 mg/dL Normal 37 - 286 Immunoglobulin A 408 mg/dL Abnormal 61 - 356 CBC Auto 02/10/2015 [facility] White Blood 8.8 10^3/uL Normal 4.8-10.[address] [place] [address] [phone] Red Blood Count 4.70 10^6/uL Normal 4.0-5.4 Hemoglobin 14.6 g/dL Normal 14.0-18.0 Hematocrit 45 % Normal 42-52 Mean Corpuscular Volume 95 fL High 80-94 Mean Corpuscular Hemoglobin 31 pg Normal 27-31 Mean Corpuscular HGB Conc 33 g/dL Normal 31-36 Red Cell Distribution Width 13 % Normal 10.5-15 Platelet Count 229 10^3/uL Normal 150-450 Mean Platelet Volume 9 um3 Normal 7.4-10.4 Abs Neutrophils 5.2 10^3/uL Normal 1.5-7.7 Abs Lymphocytes 1.8 10^3/uL Normal 1.0-4.8 Abs Monocytes 0.9 10^3/uL High 0-0.8 Abs Eosinophils 0.8 10^3/uL High 0-0.6 Abs Basophils 0.1 10^3/uL Normal 0-0.2 Abs Nucleated RBC 0 10^3/uL Normal Granulocyte % 59.3 % Normal 38-83 Lymphocyte % 20.4 % Low 25-47 Monocyte % 9.7 % High 1-9 Eosinophil % 9.4 % High 0-6 Basophil % 1.2 % Normal 0-2 Nucleated Red Blood Cells % 0 Normal Inr/Protime 06/01/2014 [facility] Inr 0.88 Normal 0.85-1.[address] [place] [address] [phone] Comp Metabolic 06/01/2014 [facility] Sodium 137 mmol/L Normal 133-[address] [place] [address] [phone] Potassium 4.3 mmol/L Normal 3.7-5.6 Chloride 104 mmol/L Normal 101-111 Co2 Carbon Dioxide 28 mmol/L Normal 22-32 Anion Gap 5 mmol/L Normal 2-11 Glucose 76 mg/dL Normal 70-100 Blood Urea Nitrogen 35 mg/dL High 6-24 Creatinine 1.22 mg/dL High 0.67-1.17 BUN/Creatinine Ratio 28.7 High 8-20 Calcium 9.6 mg/dL Normal 8.6-10.3 Total Protein 7.6 g/dL Normal 6.4-8.9 Albumin 4.2 g/dL Normal 3.2-5.2 Globulin 3.4 g/dL Normal 2-4 Albumin/Globulin Ratio 1.2 Normal 1-3 Total Bilirubin 0.40 mg/dL Normal 0.2-1.0 Alkaline Phosphatase 49 U/L Normal 34-104 Alt 14 U/L Normal 7-52 Ast 16 U/L Normal 13-39 Egfr Non- 58.4 Normal >60 Egfr 75.1 Normal >60 2 CBC No Diff 06/01/2014 [facility] White Blood 6.9 10^3/uL Normal 4.8-10.[address] [place] [address] [phone] Red Blood Count 4.69 10^6/uL Normal 4.0-5.4 Hemoglobin 14.7 g/dL Normal 14.0-18.0 Hematocrit 43 % Normal 42-52 Mean Corpuscular Volume 92 fL Normal 80-94 Mean Corpuscular Hemoglobin 31 pg Normal 27-31 Mean Corpuscular HGB Conc 34 g/dL Normal 31-36 Red Cell Distribution Width 13 % Normal 10.5-15 Platelet Count 194 10^3/uL Normal 150-450 Mean Platelet Volume 8 um3 Normal 7.4-10.4 CBC No Diff 05/05/2014 [facility] White Blood 8.7 10^3/uL Normal 4.8-10.[address] [place] [address] [phone] Red Blood Count 4.49 10^6/uL Normal 4.0-5.4 Hemoglobin 14.5 g/dL Normal 14.0-18.0 Hematocrit 43 % Normal 42-52 Mean Corpuscular Volume 95 fL High 80-94 Mean Corpuscular Hemoglobin 32 pg High 27-31 Mean Corpuscular HGB Conc 34 g/dL Normal 31-36 Red Cell Distribution Width 13 % Normal 10.5-15 Platelet Count 195 10^3/uL Normal 150-450 Mean Platelet Volume 8 um3 Normal 7.4-10.4 Basic Metabolic 05/03/2014 [facility] Sodium 136 mmol/L Normal 133-[address] [place] [address] [phone] Potassium 4.2 mmol/L Normal 3.7-5.6 Chloride 102 mmol/L Normal 101-111 Co2 Carbon Dioxide 27 mmol/L Normal 22-32 Anion Gap 7 mmol/L Normal 2-11 Glucose 167 mg/dL High 70-100 Blood Urea Nitrogen 33 mg/dL High 6-24 Creatinine 1.29 mg/dL High 0.67-1.17 BUN/Creatinine Ratio 25.6 High 8-20 Calcium 9.6 mg/dL Normal 8.6-10.3 Egfr Non- 54.9 Normal >60 Egfr 70.6 Normal >60 5 Cath Panel 04/27/2014 [facility] Activated 32.5 seconds Normal 24.0-36.[address] [place] [address] Thrombo Time [phone] CBC Auto 04/27/2014 [facility] White Blood 7.0 10^3/uL Normal 4.8-10.[address] [place] [address] [phone] Red Blood Count 4.62 10^6/uL Normal 4.0-5.4 Hemoglobin 14.7 g/dL Normal 14.0-18.0 Hematocrit 43 % Normal 42-52 Mean Corpuscular Volume 94 fL Normal 80-94 Mean Corpuscular Hemoglobin 32 pg High 27-31 Mean Corpuscular HGB Conc 34 g/dL Normal 31-36 Red Cell Distribution Width 13 % Normal 10.5-15 Platelet Count 210 10^3/uL Normal 150-450 Mean Platelet Volume 8 um3 Normal 7.4-10.4 Abs Neutrophils 4.6 10^3/uL Normal 1.5-7.7 Abs Lymphocytes 1.3 10^3/uL Normal 1.0-4.8 Abs Monocytes 0.6 10^3/uL Normal 0-0.8 Abs Eosinophils 0.6 10^3/uL Normal 0-0.6 Abs Basophils 0.1 10^3/uL Normal 0-0.2 Abs Nucleated RBC 0 10^3/uL Normal Granulocyte % 64.9 % Normal 38-83 Lymphocyte % 17.9 % Low 25-47 Monocyte % 7.9 % Normal 1-9 Eosinophil % 8.0 % High 0-6 Basophil % 1.3 % Normal 0-2 Nucleated Red Blood Cells % 0 Normal Basic Metabolic 04/27/2014 [facility] Sodium 136 mmol/L Normal 133-145 Panel [address] [place] [address] [phone] Potassium 4.3 mmol/L Normal 3.7-5.6 Chloride 103 mmol/L Normal 101-111 Co2 Carbon Dioxide 29 mmol/L Normal 22-32 Anion Gap 4 mmol/L Normal 2-11 Glucose 120 mg/dL High 70-100 Blood Urea Nitrogen 24 mg/dL Normal 6-24 Creatinine 1.34 mg/dL High 0.67-1.17 BUN/Creatinine Ratio 17.9 Normal 8-20 Calcium 9.2 mg/dL Normal 8.6-10.3 Egfr Non- 52.5 Normal >60 Egfr 67.6 Normal >60 6 Inr/Protime 04/27/2014 [facility] Inr 0.90 Normal 0.85-1.06 [address] [place] [address] [phone] Basic Metabolic 02/03/2013 [facility] Sodium 137 mmol/L 133- 145 Panel [address] [place] [address] [phone] Potassium 5.0 mmol/L 3.5-5.0 Chloride 101 mmol/L 101-111 Co2 Carbon Dioxide 30.0 mmol/L 22-32 Anion Gap 6.0 mmol/L 2-11 Glucose 102 mg/dL High 70-100 Blood Urea Nitrogen 29 mg/dL High 6-24 Creatinine 1.40 mg/dL 0.50-1.40 BUN/Creatinine Ratio 20.7 High 8-20 Calcium 9.8 mg/dL 8.1-9.9 Egfr Non- 50.1 >60 Egfr 64.4 >60 7 CBC No Diff 01/31/2013 [facility] White Blood 8.6 10^3/uL 4.8 -10.[address] [place] [address] [phone] Red Blood Count 4.89 10^6/uL 4.0-5.4 Hemoglobin 15.3 g/dL 14.0-18.0 Hematocrit 47 % 42-52 Mean Corpuscular Volume 96 fL High 80-94 Mean Corpuscular Hemoglobin 31 pg 27-31 Mean Corpuscular HGB Conc 33 g/dL 31-36 Red Cell Distribution Width 12 % 10.5-15 Platelet Count 213 10^3/uL 150-450 Mean Platelet Volume 9 um3 7.4-10.4 Inr/Protime 01/31/2013 [facility] Inr 0.87 0.87-0.97 [address] [place] [address] [phone] Laboratory test 01/31/2013 [facility] Activated 32.2 22.18- 37.18 8 finding [address] [facility] [place] [address] Thrombo Time [phone] Basic Metabolic 01/23/2013 [facility] Sodium 136 mmol/L 133- 145 Panel [address] [place] [address] [phone] Potassium 4.4 mmol/L 3.5-5.0 Chloride 104 mmol/L 101-111 Co2 Carbon Dioxide 27.0 mmol/L 22-32 Anion Gap 5.0 mmol/L 2-11 Glucose 222 mg/dL High 70-100 Blood Urea Nitrogen 26 mg/dL High 6-24 Creatinine 1.30 mg/dL 0.50-1.40 BUN/Creatinine Ratio 20.0 8-20 Calcium 9.2 mg/dL 8.1-9.9 Egfr Non- 54.6 >60 Egfr 70.2 >60 9 Urine Microalbumin 01/23/2013 [facility] Ur Microalbumin 10.0 mg /L [address] (Mg/L) [place] [address] [phone] Urine Creatinine 107.4 mg/dL Urine Microalbumin/Creatinine 9.3 ug/mg Less Than 31 Lipid Profile 06/12/2011 [facility] Triglyceride 174 mg/dL 40 -200 (Trig/Chol/HDL) [address] [place] [address] [phone] Cholesterol 116 mg/dL Less Than 200 11 High Density Lipoprotein 34 mg/dL Low 40-60 12 Cholesterol/HDL Ratio 3.41 AVERAGE 1-4.97 Low Density Lipoprotein 47 mg/dL Less Than 100 13 Laboratory test 06/12/2011 [facility] Vitamin B12 385 pg/mL 180-[address] [place] [address] [phone] Folic Acid 9.8 NG/ML 2-16 PSA,Diagnostic 0.51 NG/ML 0-4 14 Comp Metabolic Panel 06/12/2011 [facility] Sodium 137 mmol/L 135-[address] [place] [address] [phone] Potassium 4.6 mmol/L 3.5-5.0 Chloride 105 mmol/L [...] 70.4 > 60 17 Creatinine 24HR 06/10/2011 [facility] Creatinine Random 65.99 mg /dL [address] [place] [address] [phone] Urine Creatinine/24HR 1088.83 MG/24HR 800-2000 Hours Of Collection 24 HR 24- Urine Volume Measurement 1650 ML Microalbumin 24HR 06/10/2011 [facility] Microalbumin (MG/L) 5.0 mg/L Urine [address] [place] [address] [phone] Microalbumin (MG/24HR) 8.3 MG/24HR Less Than 30 Microalbumin (mcg/Min) 5.7 MCG/MIN Less Than 20 Hours Of Collection 24 HR Urine Volume Measurement 1650 ML 19 Basic Metabolic Panel 05/05/2010 [facility] Sodium 138 mmol/L 135-[address] [place] [address] [phone] Potassium 4.3 mmol/L 3.5-5.0 Chloride 106 mmol/L 101-111 Co2 (Carbon Dioxide) 25.0 mmol/L 22-32 Anion Gap 7.0 mmol/L 2-11 20 Glucose 136 mg/dL High 70-100 21 BUN 27 mg/dL High 6-24 Creatinine 1.30 mg/dL 0.50-1.40 One Over Creatinine 0.70 BUN/Creatinine Ratio 20.8 High 8-20 Calcium 9.2 mg/dL 8.1-9.9 22 eGFR Non- 58.5 > 60 eGFR 70.8 > 60 23 CBC With 05/05/2010 [facility] White Blood 9.3 CUMM 4.8-10.8 Electronic Diff [address] [place] [address] [phone] Red Cell Count 5.01 CUMM 4.6-6.2 Hemoglobin [...] Basophils 0 0-0.2 24 Laboratory test 03/31/2009 [facility] CPK (Creatine 67 U/L 0- 200 [address] Kinase) [place] [address] [phone] Lipid Profile 03/31/2009 [facility] Triglyceride 131 40-200 (Trig/Chol/HDL) [address] mg/[place] [address] [phone] Cholesterol 119 mg/dL Less Than 200 26 High Density Lipoprotein 30 mg/dL Low 40-60 27 Cholesterol/HDL Ratio 3.97 AVERAGE 1-4.97 Low Density Lipoprotein 63 mg/dL Less Than 100 28 Comp Metabolic Panel 03/31/2009 [facility] Sodium 138 mmol/L 135-[address] [place] [address] [phone] Potassium 4.3 mmol/L 3.5-5.0 Chloride 106 mmol/L [...] 71.0 > 60 33 Urine Microalbumin 03/31/2009 [facility] Microalbumin (MG/L) 5.0 mg/L Random [address] [place] [address] [phone] Urine Creatinine 70.04 mg/dL [place]/Creatinine Ratio 7.1 UG/MG Less Than 30 34 Lipid Profile 11/30/2008 [facility] Triglyceride 147 mg/dL 40 -200 (Trig/Chol/HDL) [address] [place] [address] [phone] Cholesterol 114 mg/dL Less Than 200 35 High Density Lipoprotein 30 mg/dL Low 40-60 36 Cholesterol/HDL Ratio 3.80 AVERAGE 1-4.97 Low Density Lipoprotein 55 mg/dL Less Than 100 37 Liver Function 11/30/2008 [facility] Total Protein 6.6 GM/DL 6.2-8.1 Panel [address] [place] [address] [phone] Albumin 3.9 GM/DL 3.2-5.2 Globulin 2.7 GM/DL 2-4 Albumin/Globulin Ratio 1.4 1-3 Bilirubin Total 0.8 mg/dL 0.4-1.5 Bilirubin Direct 0.1 mg/dL 0.1-0.5 Indirect Bilirubin 0.7 mg/dL 0.1-0.75 Alkaline Phosphatase 62 U/L 39-117 Alt (SGPT) 18 U/L 17-63 Ast (Sgot) 17 U/L 12-42 Laboratory test 11/30/2008 [facility] Hemoglobin A1c 8.3 % High <6.0 38 finding [address] [place] [address] [phone] 1 Test Performed by: [facility] [place] [address] Funnel Coater: Doe Sousa II, M.D., Ph.D. 2 Because [...] LEVELS OF PSA MEASURED USING THE [email or web address] ACCESS HYBRITECH IMMUNOASSAY SHOULD NOT BE INTERPRETED [...] failure <15 (or dialysis) 18 COLLECTED FROM 387238 9572 THROUGH [id number] 4796. 19 MICROALBUMIN CONCENTRATIONS ARE USED TO CLASSIFY PATIENTS NORMAL: LESS THAN 30 MG/24HRS MICROALBUMINURIA: 30-300 MG/24HRS CLINICAL ALBUMINURIA: GREATER THAN 300 MG/24HRS THE [employer] POSITION STATEMENT ON DIABETIC NEPHROPATHY STATES THAT MICROALBUMINURIA IS PRESENT IF URINARY ALBUMIN EXCRETION EXCEEDS 30 MG/24HRS (20 MCG/MIN). THE THRESHOLD FOR CLINICAL ALBUMINURIA IS REACHED AT 300 MG/24HRS (200 MCG/MIN). THE CLASSIFICATION OF A PATIENT SHOULD BE BASED UPON AT LEAST 2 OF 3 ABNORMAL RESULTS ON SPECIMENS COLLECTED WITHIN A 3 TO 6 MONTH TIME FRAME. REFERENCE: [employer], POSITION STATEMENT, DIABETIC NEPHROPATHY, DIABETES CARE, 20, SUPPLEMENT 1, S24-S27, 1996. . 20 Anion gap measurement may be of limited value in the presence of any alkalosis, especially in a combined acid base disorder. . 21 Note change in reference range as of 05/14/08. The change was based on recommendations from the [employer]. 22 Please note change in [...] change was based on recommendations from the [employer]. 31 Please note change in reference range effective 08 . 32 A metabolite of Naproxen, O-desmethylnaproxen, has been shown to interfere with the [place] method for measuring total bilirubin. Samples from [...] IN SELECTIVE PATIENTS <6.0%. PLEASE REFER TO [employer] DIABETIC CARE GUIDELINES FOR FURTHER INFORMATION. Procedures Date Code Description Status 09/04/2018 23266 EKG Tracing & Interpretation Completed 04/19/2017 84770 Holter Monitor Review (24 hr)dr barbosa & interp only Completed 04/19/2017 43212 EKG Tracing & Interpretation Completed 04/18/2017 56020 ECG Monitor/Recording W/Visual Superimposition Scanning Completed 04/17/2017 03649 Treadmill Interp/Report Only Completed 04/17/2017 27618 Stress Test Supervsn W/Out I/R Completed 04/17/2017 52974 EKG, Interpretation Only Completed 09/04/2016 11639 EKG Tracing & Interpretation Completed 08/24/2015 39079 Treadmill Interp/Report Only Completed 08/24/2015 99591 Stress Test Supervsn W/Out I/R Completed 08/09/2015 25604 EKG Tracing & Interpretation Completed 08/05/2014 78439 ECHO Transthorasic Realtime 2D W Doppler & Color Flow Hosp Completed 07/01/2014 44643 EKG Tracing & Interpretation Completed 05/28/2014 63383 EKG Tracing & Interpretation Completed 05/01/2014 39611 Coronary Angiography With Catheter Placement In [facility] Completed Grafts 05/01/2014 96238 EKG, Interpretation Only Completed 04/17/2014 30223 ECHO Transthoracic, Real-Time 2D With Doppler And Color Completed Flow 04/05/2014 72587 EKG, Interpretation Only Completed 04/04/2014 54170 EKG, Interpretation Only Completed 04/03/2014 81127 Cardiac Cath,LT Hrtmincl Intraprocedural Ink LT Ventricul Completed Mammary 04/03/2014 69816 EKG, Interpretation Only Completed 04/03/2014 30180 Revascularization Coronary Artery Bypass Graft Completed 01/28/2014 38255 EKG, Interpretation Only Completed 08/25/2013 24299 EKG Tracing & Interpretation Completed 01/31/2013 30532 Inj During Cath,For Supravalvuar Aortography Add On Code Completed 01/31/2013 15151 Cardiac Cath,LT Hrtmincl Intraprocedural Ink LT Ventricul Completed Mammary 01/31/2013 82127 Left Heart Cath. Incl S/I Coronaries, Angio S/I V Gram If Completed Done 01/31/2013 73731 Coronary Angiography With Catheter Placement In [facility] Completed Grafts 01/31/2013 68799 Cath PLMT&NJX L Ventriculog Img S&I Completed 01/31/2013 37698 Left Health Catheterization W/Inj For Left Completed Ventriculography,S&I 01/31/2013 92917 EKG, Interpretation Only Completed 01/21/2013 24286 ECHO Transthorasic Realtime 2D W Doppler & Color Flow Hosp Completed 01/21/2013 78453 Pulse Wave/Continuous-Interp.RPT Completed 01/21/2013 17228 Color Flow Doppler/Interp & Reprt Completed 01/15/2013 07276 ECHO Stress Test Incl Perf Contiuous ekg Monitoring W/Phys Completed Superv 10/17/2012 59946 EKG Tracing & Interpretation Completed 04/27/2011 19202 EKG Tracing & Interpretation Completed 12/10/2009 28177 EKG Tracing & Interpretation Completed 06/14/2009 39218 ECHO Stress Test Incl Perf Contiuous ekg Monitoring W/Phys Completed Superv 07/29/2008 14047 ECHO/Stress Completed 07/29/2008 64066 ECHO/Stress Completed 07/29/2008 05100 ECHO/Stress Completed 07/29/2008 77063 Stress Test Completed 07/29/2008 36364 Stress Test Completed 06/04/2008 53830 EKG Tracing & Interpretation Completed 09/09/2007 78942 Stress Test Completed 09/09/2007 15813 Stress Test Completed 09/09/2007 37170 ECHO/Stress Completed 09/09/2007 23147 ECHO/Stress Completed 09/09/2007 37112 ECHO/Stress Completed 06/04/2007 10510 EKG Tracing & Interpretation Completed 10/05/2006 64410 EKG Tracing & Interpretation Completed 08/20/2006 93337 ECHO/Stress Completed 08/20/2006 38146 Stress Test Completed 08/20/2006 62507 Stress Test Completed 07/20/2006 21130 EKG Tracing & Interpretation Completed 08/09/2005 46895 Echocardiogram Completed 08/09/2005 41593 Pulse Doppler & Continuous Wave Completed 08/09/2005 43785 Color Doppler Completed 07/10/2005 92123 ECHO/Stress Completed 07/10/2005 17618 Stress Test Completed 06/20/2004 57379 ECHO/Stress Completed 06/20/2004 55338 Stress Test Completed 05/06/2003 38912 ECHO/Stress Completed 05/06/2003 44153 Stress Test Completed 04/02/2003 64061 EKG Tracing & Interpretation Completed Encounters Type Date Location Provider Dx Diagnosis Office Visit 05/01/2019 [facility] Trisha Mendez J47.9 Bronchiectasis, 11:15a [facility] nola Shell J44.9 Chronic obstructive pulmonary disease, unspecified Office Visit 03/25/2019 9:00a Pulmonology And Trisha J98.4 Other disorders [facility] Andrea of lung [facility] J47.9 Bronchiectasis, uncomplicated Office Visit 09/04/2018 1:15p [facility] Augustin Michelle I25.10 Aths[facility] heart Of [facility] Emma Calles, disease of [facility], [employer] [place] coronary artery w/o ang pctrs Z95.1 Presence of aortocoronary bypass graft Z98.61 Coronary angioplasty status Office Visit 08/26/2018 Pulmonology And Trisha J47.1 Bronchiectasis with 12:00p [facility] Andrea (acute) exacerbation [employer] Office Visit 09/03/2017 [facility] Junior Adrian, I25.10 Athscl heart disease 8:20a Of [employer] AT [facility], [facility], of [place] coronary FSCAI artery w/o ang pctrs E78.5 Hyperlipidemia, unspecified I10 Essential (primary) hypertension Office Visit 04/23/2017 1:15p Pulmonology And Trisha R07.9 Chest pain, [facility] Andrea unspecified [facility] J47.9 Bronchiectasis, uncomplicated Office Visit 04/19/2017 3:40p [facility] Junior Adrian, R07.9 Chest pain, Of [facility] AT [facility], [facility], unspecified FSCAI I10 Essential (primary) hypertension I25.10 Athscl heart disease of [place] coronary artery w/o ang pctrs Office Visit 04/16/2017 12:35p [facility] R07.9 Chest pain, Assoc,pc MD Jaspal unspecified Hospitalists I25.119 Athscl heart disease of [place] cor art w unsp ang pctrs I10 Essential (primary) hypertension E11.9 Type 2 diabetes mellitus without complications Office Visit 09/04/2016 9:40a [facility] Junior Adrian, I10 Essential (primary) Of [facility] AT [facility], hypertension FSCAI E78.5 Hyperlipidemia, unspecified I25.10 Athscl heart disease of [place] coronary artery w/o ang pctrs Office Visit 08/11/2016 Pulmon[facility] And Trisha J47.9 Bronchiectasis, 8:15a Sleep Services Of MD Andrea uncomplicated [facility] J45.20 Mild intermittent asthma, uncomplicated Office Visit 07/20/2016 Pulmonology And Trisha J47.9 Bronchiectasis, 8:30a Sleep Services Of MD Andrea uncomplicated [employer] J45.20 Mild intermittent asthma, uncomplicated Office Visit 11/05/2015 Pulmonology And Trisha J47.9 Bronchiectasis, 1:15p Sleep Services Of MD Andrea uncomplicated [employer] Office Visit 08/30/2015 [facility] Junior Adrian, I10 Essential ( primary) 3:40p Of [employer] [facility], hypertension FSCAI E78.5 Hyperlipidemia, unspecified 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, unspecified Office Visit 08/09/2015 11:20a [facility] Junior Adrian, I25.9 Chronic ischemic Of [employer] [facility], heart disease, FSCAI unspecified E78.5 Hyperlipidemia, unspecified I10 Essential (primary) hypertension Office Visit 05/12/2015 Pulmonology And Trisha 494.0 Bronchiectasis 1:00p Sleep Services Of MD Andrea Without Acute [employer] Exacerbation 493.10 Asthma Intrinsic Unspecified 486 Pneumonia Organism Unspec Office Visit 02/10/2015 11:00a Pulmon[facility] And Trisha 493.10 Asthma Intrinsic Sleep Services Of MD Andrea Unspecified [employer] 486 Pneumonia Organism Unspec Office Visit 08/18/2014 3:00p [facility] Junior Adrian, 414.9 Ischemic Heart Of [employer] [facility], Disease Chronic FSCAI Unspec 424.0 Mitral Valve Disorder 272.4 Hyperlipidemia Other Unspec 424.1 Aortic Valve Disorder Office Visit 07/01/2014 2:00p [facility] Junior Adiran, 414.9 Ischemic Heart Of [employer] [facility], Disease Chronic FSCAI Unspec 424.0 Mitral Valve Disorder 272.4 Hyperlipidemia Other Unspec Office Visit 05/28/2014 3:00p [facility] Junior Adrain, 414.9 Ischemic Heart Of [employer] [facility], [facility], Disease Chronic FSCAI Unspec 424.0 Mitral Valve Disorder 272.4 Hyperlipidemia Other Unspec Office Visit 05/05/2014 [place] Junior Adrian, V58.41 Postoperative Wound 2:45p Cardiology Emma, [facility], Closure Encounter [employer] AT [facility] FSCAI Office Visit 04/16/2014 Rubio Marks 414.9 Ischemic Heart 4:00p Nahid Pinto M.D. Disease Chronic Unspec 410.70 Myocardial Infarc Acute Subendocardial Episode Care Unspec 411.1 Coronary Syndrome Intermediate Office Visit 04/10/2014 2:15p Tina Adrian, V58.41 Postoperative Wound Cardiology Of Emma, [facility], Closure Encounter [employer] AT [facility] FSCAI 414.9 Ischemic Heart Disease Chronic Unspec Office Visit 04/05/2014 Rubio Croft S. 410.70 Myocardial Infarc 8:20a Nahid Lutz M.D. Acute Subendocardial Episode Care Unspec 411.1 Coronary Syndrome Intermediate 414.9 Ischemic Heart Disease Chronic Unspec Office Visit 04/04/2014 Rubio Croft S. 414.01 Coronary 8:12a Nahid Lutz M.D. Atherosclerosis Tribal 794.31 Electrocardiogram (ECG) (EKG) Abnormal 786.50 Pain Chest Unspec Office Visit 04/03/2014 [place] Nahid Marks 410.90 Myocardial 7:53a Emma Pinto Infarc Acute Unspec Site Episode Care Unspec [facility] 465.9 URI Upper 1:37p aline Us II, M.D. Respiratory Hospitalists Infections Acute Unspec Sites 780.60 Fever, Unspecified 584.9 Acute Kidney Failure, Unspecified 414.00 Coronary Atherosclerosis Unspec Type Vessel Tribal/Graft Office Visit 08/25/2013 Rubio Marks 414.01 Coronary 3:40p Nahid Pinto M.D. Atherosclerosis Tribal 401.1 Hypertension Benign 272.0 Hypercholesterolemia Pure V45.81 Aortocoronary Bypass Postsurgical Status Office Visit 02/05/2013 Rubio Croft S. 414.01 Coronary 2:00p Nahid Lutz M.D. Atherosclerosis Tribal 401.1 Hypertension Benign 272.0 Hypercholesterolemia Pure V45.81 Aortocoronary Bypass Postsurgical Status Office Visit 01/31/2013 Rubio Croft S. 414.01 Coronary 11:30a Nahid Lutz M.D. Atherosclerosis Tribal 401.1 Hypertension Benign 786.50 Pain Chest Unspec 786.05 Shortness Of Breath v45.81 Aortocoronary Bypass Postsurgical Status Office Visit 01/15/2013 [place] [facility]CHO 414.01 Coronary 3:15p Cardiology Schedule Atherosclerosis Tribal 250.00 Diabetes Mellitus W/O Compl Type II Or Unspec Controlled 272.0 Hypercholesterolemia Pure 401.1 Hypertension Benign Office Visit 10/17/2012 [place] Kaiser Marks 414.01 Coronary 9:40a Cardiology Emma Pinto Atherosclerosis Tribal 250.00 Diabetes Mellitus W/O Compl Type II Or Unspec Controlled 272.0 Hypercholesterolemia Pure 785.2 Murmur Cardiac Undiagnosed Office Visit 04/27/2011 10:40a [facility] Kaiser Marks 401.1 Ria Pinto M.D. Benign 414.01 Coronary Atherosclerosis Tribal 250.00 Diabetes Mellitus W/O Compl Type II Or Unspec Controlled 272.0 Hypercholesterolemia Pure Office Visit 12/10/2009 3:00p [facility] Kaiser Marks 401.1 Ria Pinto M.D. Benign 414.01 Coronary Atherosclerosis Tribal 250.00 Diabetes Mellitus W/O Compl Type II Or Unspec Controlled 272.0 Hypercholesterolemia Pure Office Visit 06/04/2008 Rubio Marks 414.01 Coronary 8:40a Nahid Pinto M.D. Atherosclerosis Tribal 401.1 Hypertension Benign 250.00 Diabetes Mellitus W/O Compl Type II Or Unspec Controlled 272.0 Hypercholesterolemia Pure Office Visit 06/04/2007 Rubio Marks 414.01 Coronary 9:20a Cardiology Emma Pinto Atherosclerosis Tribal 401.1 Hypertension Benign 250.00 Diabetes Mellitus W/O Compl Type II Or Unspec Controlled 272.0 Hypercholesterolemia Pure 785.2 Murmur Cardiac Undiagnosed Office Visit 01/31/2007 Rubio Marks 414.01 Coronary 10:00a Nahid Pinto M.D. Atherosclerosis Tribal 401.1 Hypertension Benign 250.00 Diabetes Mellitus W/O Compl Type II Or Unspec Controlled Office Visit 11/22/2006 Rubio Marks 414.01 Coronary 10:00a Cardiology Emma Pinto Atherosclerosis Tribal 401.0 Hypertension Malignant 272.0 Hypercholesterolemia Pure 250.00 Diabetes Mellitus W/O Compl Type II Or Unspec Controlled Office Visit 10/05/2006 Rubio aMrks 414.01 Coronary 9:40a Cardiology Emma Pinto Atherosclerosis Tribal 401.0 Hypertension Malignant 272.0 Hypercholesterolemia Pure Office Visit 07/20/2006 Rubio Marks 414.01 Coronary 2:20p Cardiology Emma Pinto Atherosclerosis Tribal 401.0 Hypertension Malignant 272.0 Hypercholesterolemia Pure Office Visit 07/10/2005 Rubio Marks 414.01 Coronary 11:00a Cardiology Emma Pinto Atherosclerosis Tribal 785.2 Murmur Cardiac Undiagnosed 250.00 Diabetes Mellitus W/O Compl Type II Or Unspec Controlled V45.81 Aortocoronary Bypass Postsurgical Status Office Visit 06/20/2004 Rubio Marks 414.01 Coronary 11:00a Cardiology Emma Pinto Atherosclerosis Tribal 401.1 Hypertension Benign 250.00 Diabetes Mellitus W/O Compl Type II Or Unspec Controlled 272.0 Hypercholesterolemia Pure Office Visit 04/02/2003 Rubio Marks 414.01 Coronary 1:40p Cardiology Emma Pinto Atherosclerosis Tribal 250.00 Diabetes Mellitus W/O Compl Type II Or Unspec Controlled 785.2 Murmur Cardiac Undiagnosed murmur Murmur 272.4 Hyperlipidemia Other Unspec Plan of Treatment Future Appointment(s):05/03/2020 10:30 am - Trisha Mendez MD at [facility]05/01/2019 - Trisha Mendez MDJ47.9 Bronchiectasis, uncomplicatedFollow up:1 yearJ44.9 Chronic obstructive pulmonary disease, unspecified
[2019-05-01 17:49] VITALS: BP 150/81
--- NOTE | 2019-05-01 19:18 | UC ---
Skin Complaint HPI - HPI Summary HPI Summary: 78 yo male was seen here late March for a rash was clearing on steroid cr but ran out in a few days for oen week felt feverish and had headche had large red lesion on thigh which has disappeared requests lyme test - History of Current Complaint Chief Complaint: UCSkin Time Seen by Provider: 05/01/19 18:58 Stated Complaint: RASH Onset/Duration: Gradual Onset, Lasting Weeks Timing: Constant Onset Severity: Mild Current Severity: Mild Pain Intensity: 0 Pain Scale Used: 0-10 Numeric Location: Other - left thigh Character: Pruritus, Redness Aggravating Factor(s): Nothing Alleviating Factor(s): Nothing - Allergy/Home Medications Allergies/Adverse Reactions: Allergies Allergy/AdvReac Type Severity Reaction Status Date / Time SEASONAL HAYFEVER Allergy ITCHY Uncoded 05/01/19 17:49 WATERY EYES PMH/Surg Hx/FS Hx/Imm Hx Previously Healthy: Yes Endocrine History: Diabetes Cardiovascular History: Hypertension Respiratory History: COPD - Surgical History Surgical History: Yes Surgery Procedure, Year, and Place: left cataract 2003. bypass 1993. cardiac stents - Family History Known Family History: Positive: Non-Contributory Negative: Cardiac Disease, Diabetes - Social History Alcohol Use: Daily Alcohol Amount: 4 oz red wine Substance Use Type: None Smoking Status (MU): Former Smoker Type: Cigarettes Amount Used/How Often: 0.5 pack per day Length of Time of Smoking/Using Tobacco: 30 Have You Smoked in the Last Year: No When Did the Patient Quit Smoking/Using Tobacco: 1990 - Immunization History Most Recent Influenza Vaccination: 2012 Most Recent Tetanus Shot: unknown Most Recent Pneumonia Vaccination: Had it, date unknown Review of Systems All Other Systems Reviewed And Are Negative: Yes Constitutional: Positive: Negative Skin: Positive: Rash Eyes: Positive: Negative ENT: Positive: Negative Respiratory: Positive: Negative Cardiovascular: Positive: Negative Gastrointestinal: Positive: Negative Genitourinary: Positive: Negative Motor: Positive: Negative Neurovascular: Positive: Negative Musculoskeletal: Positive: Negative Neurological: Positive: Negative Psychological: Positive: Negative Physical Exam Triage Information Reviewed: Yes Appearance: Well-Appearing, No Pain Distress, Well-Nourished Vital Signs: Initial Vital Signs Temp 98.9 F 05/01/19 17:46 Pulse 85 05/01/19 17:46 Resp 16 05/01/19 17:46 BP 150/81 05/01/19 17:46 Pulse Ox 96 05/01/19 17:46 Vital Signs Reviewed: Yes Eyes: Positive: Conjunctiva Clear ENT: Negative: Hearing grossly normal, Nasal congestion, Nasal drainage, Trismus , Muffled voice, Hoarse voice Neck: Positive: Supple, Nontender, No Lymphadenopathy Respiratory: Positive: Lungs clear, Normal breath sounds, No respiratory distress, No accessory muscle use Cardiovascular: Positive: RRR, No Murmur Musculoskeletal: Positive: ROM Intact, No Edema Neurological: Positive: Alert Psychological Exam: Normal Skin Exam: Other - red scabs left ant thigh with excoriations Course/Dx - Diagnoses Provider Diagnosis: Rash of unknown etiology Discharge - Sign-Out/Discharge Documenting (check all that apply): Patient Departure All imaging exams completed and their final reports reviewed: No Studies - Discharge Plan Condition: Stable Disposition: HOME Prescriptions: Triamcinolone 0.5% CREAM(NF) [Triamcinolone 0.5% CREAM*] 1 applic TOPICAL QID # 60 tube Patient Education Materials: Acute Rash (ED) Referrals: Roderick Gutierrez MD [Primary Care Provider] - 2 Weeks (if not better) - Billing Disposition and Condition Condition: STABLE Disposition: Home
--- NOTE | 2019-05-05 08:13 | UC ---
- Progress Note Progress Note: Lyme screen from May 01, 2019 comes back as positive. Patient had a Lyme screen because he had a circular rash in a headache and a fever therefore I would treat for Lyme disease. I sent then the prescription for doxycycline 100 mg by mouth twice a day 14 days. Nursing to call patient inform him of the results and of the prescription. Patient should also follow-up his primary care doctor. Course/Dx - Diagnoses Provider Diagnoses: Rash of unknown etiology Discharge - Sign-Out/Discharge Documenting (check all that apply): Patient Departure All imaging exams completed and their final reports reviewed: No Studies - Discharge Plan Condition: Stable Disposition: HOME Prescriptions: DOXYcycline CAP(*) [DOXYcycline 100MG CAP(*)] 100 mg PO BID #28 cap Triamcinolone 0.5% CREAM(NF) [Triamcinolone 0.5% CREAM*] 1 applic TOPICAL QID # 60 tube Patient Education Materials: Acute Rash (ED) Referrals: Roderick Gutierrez MD [Primary Care Provider] - 2 Weeks (if not better) - Billing Disposition and Condition Condition: STABLE Disposition: Home
== END 2019-05-01 19:30 | disposition home or self-care (01) ==
LOC: UCEAST 17:36
DX: R21 Rash and other nonspecific skin eruption (principal); E11.9 Type 2 diabetes mellitus without complications; I10 Essential (primary) hypertension; J44.9 Chronic obstructive pulmonary disease, unspecified; Z87.891 Personal history of nicotine dependence
CPT/HCPCS: 36415; 86617; 86618; 99212; G0463

== ENCOUNTER 2019-05-30 09:14 | Emergency (ER) | payer MEDICARE ==
[2019-05-30 09:25] VITALS: BP 160/73
--- NOTE | 2019-05-30 09:48 | UC ---
Skin Complaint HPI - HPI Summary HPI Summary: 79 yo male presents, accompanied by his , with rash to abdomen and legs. He tells me that about 1 month ago he had an itchy rash to these areas and on her left forearm and was seen here and dx'd with lyme disease. Serology testing was positive and he was placed on doxycycline for 2 week. While taking the doxycycline his symptoms completely resolved, but he has been off the doxy for about 1.5 weeks and over the last 4-5 days his abdominal rash and leg rash has returned - is itchy and he is scratching it often. He feels well otherwise and denies fever, chills, joint pain/swelling, abdominal pain, n/v. - History of Current Complaint Chief Complaint: UCRas Time Seen by Provider: 05/30/19 09:47 Stated Complaint: RECHECK LYME DISEASE Hx Obtained From: Patient, Family/Management Tech Onset/Duration: Gradual Onset Current Severity: None Pain Intensity: 0 Pain Scale Used: 0-10 Numeric - Allergy/Home Medications Allergies/Adverse Reactions: Allergies Allergy/AdvReac Type Severity Reaction Status Date / Time SEASONAL HAYFEVER Allergy ITCHY Uncoded 05/30/19 09:25 WATERY EYES PMH/Surg Hx/FS Hx/Imm Hx Endocrine History: Diabetes, Dyslipidemia Cardiovascular History: Cardiac Disease, Hypertension - Surgical History Surgical History: Yes Surgery Procedure, Year, and Place: left cataract 2003. bypass 1993. cardiac stents - Family History Known Family History: Positive: Non-Contributory Negative: Cardiac Disease, Diabetes - Social History Lives: With Family Alcohol Use: Daily Alcohol Amount: 4 oz red wine Substance Use Type: None Smoking Status (MU): Former Smoker Type: Cigarettes Amount Used/How Often: 0.5 pack per day Length of Time of Smoking/Using Tobacco: 30 Have You Smoked in the Last Year: No When Did the Patient Quit Smoking/Using Tobacco: 1990 - Immunization History Most Recent Influenza Vaccination: 2012 Most Recent Tetanus Shot: unknown Most Recent Pneumonia Vaccination: Had it, date unknown Review of Systems All Other Systems Reviewed And Are Negative: No Constitutional: Positive: Negative Skin: Positive: Rash Eyes: Positive: Negative ENT: Positive: Negative Respiratory: Positive: Negative Cardiovascular: Positive: Negative Gastrointestinal: Positive: Negative Musculoskeletal: Positive: Negative Neurological: Positive: Negative Psychological: Positive: Negative Physical Exam - Summary Physical Exam Summary: GENERAL: NAD. WDWN. No pain distress. SKIN: Abdomen, b/l flanks, and anterior thighs with diffuse excoriations and flat maculopapular 5mm to 10mm diameter mildly erythematous lesions. No abscess , drainage, or streaking. NECK: Supple. Nontender. No lymphadenopathy. CHEST: No accessory muscle use. Breathing comfortably and in no distress. CV: Pulses intact. Cap refill <2seconds NEURO: Alert. PSYCH: Age appropriate behavior. Triage Information Reviewed: Yes Vital Signs: Initial Vital Signs Temp 98 F 05/30/19 09:22 Pulse 62 05/30/19 09:22 Resp 16 05/30/19 09:22 BP 160/73 05/30/19 09:22 Pulse Ox 100 05/30/19 09:22 Vital Signs Reviewed: Yes Course/Dx - Course Course Of Treatment: His rash seems more dermatological in nature such as eczema given it's appearance and itchiness (not typical EM rash today), however his lyme western blot was positive for acute infection and he had resolution of his symptoms with doxycycline. His symptoms have since returned leading to the possibility of continued lyme infection - therefore I will place him on doxycycline again for 2 weeks and have him f/u with Infectious disease for further treatment. - Diagnoses Provider Diagnosis: Lyme disease, Rash Discharge ED - Sign-Out/Discharge Documenting (check all that apply): Patient Departure All imaging exams completed and their final reports reviewed: No Studies - Discharge Plan Condition: Stable Disposition: HOME Prescriptions: DOXYcycline CAP(*) [DOXYcycline 100MG CAP(*)] 100 mg PO BID #28 cap Triamcinolone 0.1% CREAM (NF) [Kenalog 0.1% Cream (NF)] 1 applic TOPICAL BID #1 tube Patient Education Materials: Lyme Disease (ED) Referrals: Roderick Gutierrze MD [Primary Care Provider] - Carlos CORTES,Jim Calixto [Medical Doctor] - As Soon As Possible Additional Instructions: If you develop a fever, shortness of breath, chest pain, new or worsening symptoms - please call your PCP or go to the ED immediately. Your blood pressure was high at todays visit. Please see your primary provider within 4 weeks for recheck and re-evaluation. Please follow up with the Infectious Disease doctor (Dr. Gonzalez) at the number below as soon as possible for further treatment of your lyme disease - Billing Disposition and Condition Condition: STABLE Disposition: Home
== END 2019-05-30 10:15 | disposition home or self-care (01) ==
LOC: UCEAST 09:14
DX: A69.20 Lyme disease, unspecified (principal); E11.9 Type 2 diabetes mellitus without complications; E78.5 Hyperlipidemia, unspecified; I10 Essential (primary) hypertension; Z87.891 Personal history of nicotine dependence; Z95.1 Presence of aortocoronary bypass graft
CPT/HCPCS: 99212; G0463

== ENCOUNTER 2019-12-29 11:21 | Emergency (ER) | payer MEDICARE, OTHER ==
--- OUTSIDE RECORDS SUMMARY | 2019-12-29 11:30 | XMS REPORT | Continuity of Care Document ---
:1940 External Reference #:[id number] Author Name Augustin Calles M.D., [facility], [facility] (transmitted by agent of provider Beatriz Montalvo) Address [address] [place] [id number] Care Team Providers Name Role Phone Roderick Gutierrez MD - Endocrinology, Care Team Information Direct Support Professional Diabetes & Metabolism Calixto Powell MD - Care Team Information Direct Support Professional [phone] Interventional Cardiology Junior Adrian MD - Cardiovascular Care Team Information Direct Support Professional Disease Problems Active Problems Provider Date Coronary arteriosclerosis Kaiser Pinto M.D. Onset: 10/17/2012 Type 2 diabetes mellitus Kaiser Pinto M.D. Onset: 10/17/2012 Pure hypercholesterolemia Kaiser Pinto M.D. Onset: 10/17/2012 Heart murmur Kaiser Pinto M.D. Onset: 10/17/2012 Benign essential hypertension Guerda Lutz M.D. Onset: 02/05/2013 Aortocoronary Bypass Postsurgical Status Guerda Lutz M.D. Onset: 02/05/2013 Chronic ischemic heart disease Junior Adrian M.D., [facility], Onset: 04/10/2014 [facility] Mitral valve disorder [place] [facility] Schedule Onset: 04/17/2014 Hyperlipidemia Junior Adrian M.D., [facility], Onset: 05/28/2014 [facility] Aortic valve disorder Junior Adrian M.D., [facility], Onset: 08/18/2014 [facility] Intrinsic asthma without status Trisha Andrea, MD Onset: 02/10/2015 asthmaticus Pneumonia Trisha Mendez MD Onset: 02/10/2015 Bronchiolectasis Trisha Mendez MD Onset: 05/12/2015 Essential hypertension Junior Adrian M.D., [facility], Onset: 08/09/2015 [facility] Chest pain Junior Adrian M.D., [facility], Onset: 04/19/2017 [facility] Social History Type Date Description Comments Sex Unknown ETOH Use 1/2 glass of red wine every day Tobacco Use Start: Unknown End: Patient is a former smoked x 30 yrs, Unknown smoker 1/2 ppd, quit 25yrs ago Recreational Drug Use Denies Drug Use Smoking Status Reviewed: 11/05/19 Patient is a former smoked x 30 yrs, smoker 1/2 ppd, quit 25yrs ago Exercise Type/Frequency Exercises regularly Allergies, Adverse Reactions, Alerts Active Allergies Reaction Severity Comments Date Niaspan raised HgB Aic 04/02/2003 Diazepam 05/01/2019 Medications Active Medications SIG Qnty Indications Ordering Date Provider Atenolol 1 by mouth daily 60tabs Kaiser Marks 04/16/2014 25mg Tablets Emma Pinto Nitrostat one sl q5min up 25tabs Eloy Calitxo 04/16/2014 0.4mg Tablets to 3 doses as Emma Woody Sub needed Aspirin Enteric Coated qd Kaiser Marks 04/01/2003 Emma Pinto 81mg Tablets Pravastatin Sodium 1 tablet daily at 90tabs Unknown 40mg bedtime Tablets Metformin HCL ER 1 po three times 30tabs Unknown 500mg daily Tablets ER 24HR Clopidogrel Bisulfate 1 by mouth every 90tabs Junior Adrian, day Emma, [facility], 75mg Tablets [facility] Triamcinolone Apply Topically Unknown Acetonide Two Times Daily 0.1% Cream Immunizations Description No Information Available Vital Signs Date Vital Result Comment 11/05/2019 8:15am Height 66 inches 5'6" Weight 128.00 lb with shoes Heart Rate 61 /min BP Systolic Sitting 110 mmHg BP Diastolic Sitting 72 mmHg BP Systolic Standing 110 mmHg BP Diastolic Standing 78 mmHg BMI (Body Mass Index) 20.7 kg/m2 06/12/2019 2:43pm Height 66 inches 5'6" Weight 120.00 lb Heart Rate 72 /min BP Systolic Sitting 110 mmHg BP Diastolic Sitting 60 mmHg Respiratory Rate 14 /min Body Temperature 98.2 F BMI (Body Mass Index) 19.4 kg/m2 Results Description No Information Available Procedures Date Code Description Status 11/05/2019 41401 EKG Tracing & Interpretation Completed 10/27/2019 99049 ECHO Transthoracic, Real-Time 2D With Doppler And Color Completed Flow Medical Devices Description No Information Available Encounters Type Date Location Provider Dx Diagnosis Office Visit 11/05/2019 [facility] Augustin Michelle I25.10 Athscl heart 8:45a Of [place] Calles M.D., disease of [place] FACC, FASNC coronary artery w/o ang pctrs Office Visit 06/12/2019 [facility] Murphy Calixto R21 Rash and other 2:40p Infectious Emma Aleman nonspecific skin Diseases eruption Office Visit 06/04/2019 [facility] Calixto R21 Rash and other 9:50a Infectious Emma Aleman nonspecific skin Diseases eruption Assessments Date Code Description Provider 11/05/2019 I25.10 Atherosclerotic heart disease of Augustin Calles M.D., FACC, [place] coronary artery without angina FASNC pectoris 10/27/2019 I25.10 Atherosclerotic heart disease of [facility] ECHO Schedule [place] coronary artery without angina pectoris 06/12/2019 R21 Rash and other nonspecific skin Jim Aleman M.D. eruption 06/04/2019 R21 Rash and other nonspecific skin Jim Aleman M.D. eruption Plan of Treatment Future Appointment(s):05/03/2020 10:30 am - Trisha Mendez MD at [facility]11/05/2019 - Augustin Calles M.D., FAC, [id number] Atherosclerotic heart disease of [place] coronary artery without angina pectorisComments:As discussed, your heart is doing well. Please continue to walk for exercise.Follow up:one year Functional Status Description No Information Available Mental Status Description No Information Available Referrals Description No Information Available
--- NOTE | 2019-12-29 12:15 | UC ---
General HPI - HPI Summary HPI Summary: Pleasant 79 yo gentleman C/o two episodes of acid like pain in midepig last two days. No pain now, most recent episode last evening. Took both asa and plavix late last night. Some shortness of breath with the pain, but not now. Denies fever / chills / cough. Does not check blood glucose regularly. Takes metformin. No rash. No other GI c/o's. No ENT c/o's. COVID 19 exposure, he is not certain. - History of Current Complaint Stated Complaint: SHORT OF BREATH Time Seen by Provider: 12/29/19 12:01 Hx Obtained From: Patient - Allergy/Home Medications Allergies/Adverse Reactions: Allergies Allergy/AdvReac Type Severity Reaction Status Date / Time SEASONAL HAYFEVER Allergy ITCHY Uncoded 12/29/19 12:24 WATERY EYES Home Medications: Home Medications Atenolol TAB* [Tenormin TAB* 25 MG] 25 mg PO BEDTIME 01/30/13 [History Confirmed 12/29/19] Aspirin 81 mg CHEW TAB* 81 mg PO BEDTIME 05/01/14 [History Confirmed 12/29/19] Clopidogrel TAB* [Plavix TAB*] 75 mg PO BEDTIME 09/28/14 [History Confirmed 03/13] metFORMIN* [Glucophage 500 MG TAB *] 500 mg PO TID 09/28/14 [History Confirmed 12/29/19] Nitroglycerin TAB 0.4 MG* 0.4 mg SL Q5M PRN 08/23/15 [History Confirmed 12/29/19 ] Pravastatin (NF) [Pravachol (NF)] 40 mg PO BEDTIME 04/16/17 [History Confirmed 12/29/19] Triamcinolone 0.1% CREAM (NF) [Kenalog 0.1% Cream (NF)] 1 applic TOPICAL BID #1 tube 05/30/19 [Rx] PMH/Surg Hx/FS Hx/Imm Hx Previously Healthy: No - signficant cardiac hx, copd, bronchiectasis, dm - Surgical History Surgical History: Yes Surgery Procedure, Year, and Place: left cataract 2003. bypass 1993. cardiac stents - Family History Known Family History: Positive: Non-Contributory Negative: Cardiac Disease, Diabetes - Social History Alcohol Use: Daily Alcohol Amount: 4 oz red wine Substance Use Type: None Smoking Status (MU): Former Smoker Type: Cigarettes Amount Used/How Often: 0.5 pack per day Length of Time of Smoking/Using Tobacco: 30 Have You Smoked in the Last Year: No When Did the Patient Quit Smoking/Using Tobacco: 1990 - Immunization History Most Recent Influenza Vaccination: 2012 Most Recent Tetanus Shot: unknown Most Recent Pneumonia Vaccination: Had it, date unknown Review of Systems All Other Systems Reviewed And Are Negative: Yes Constitutional: Positive: Other - see hpi Skin: Positive: Negative Eyes: Positive: Other - see hpi ENT: Positive: Other - see hpi Respiratory: Positive: Other - see hpi Cardiovascular: Positive: Other - see hpi Gastrointestinal: Positive: Other - see hpi Motor: Positive: Other - see hpi Neurovascular: Positive: Other - see hpi Musculoskeletal: Positive: Other: - see hpi Neurological/Mental Status: Positive: Negative Psychological: Positive: Negative Is Patient Immunocompromised?: No Physical Exam Triage Information Reviewed: Yes Appearance: Well-Appearing - sitting, Well-Nourished Vital Signs Reviewed: Yes Eye Exam: Normal ENT Exam: Normal - nad Neck: Positive: Supple - supple for age, Nontender, No Lymphadenopathy Respiratory Exam: Other - BS equal bilat, clear no adventitious sounds No wheeze / rhonchi Respiratory: Positive: No respiratory distress, No accessory muscle use Cardiovascular Exam: Other - HR regular, correlates with R radial pulse nondiaphoretic Cardiovascular: Positive: Brisk Capillary Refill Abdominal Exam: Other - sitting up, nad abd soft, nondistended + nabs Musculoskeletal Exam: Other - BLE + mild edema. ++ sigmata of venous insuff / periph vasd dz Neurological Exam: Normal - grossly nonfocal Psychological Exam: Normal - conversing easily and appropriately. nad Skin Exam: Normal - no visible or reported rash see [facility] nondiaphoretic Course/Dx - Course Course Of Treatment: EKG - SR at 70 bpm pr 164 qtc 480 C/w EKG 04/19/17 D/w Dr. Diaz 12:20. Mr. Langston politely but firmly declines EMS. He said that he drove himself and accompanying spouse here. Spouse will drive to the ED. No pain c/o right now. But strong cardiopulmonary hx, increased suspicion of cardiopulmonary issue. Mr. Langston carefully considered and agreed to go to the ED, but wants to the tested for covid 19, d/t chest pain and sob, unknown possible exposure. This was done here, isolation precautions reviewed by RN. - Diagnoses Provider Diagnosis: Chest pain Discharge ED - Sign-Out/Discharge Documenting (check all that apply): Patient Departure All imaging exams completed and their final reports reviewed: No Studies - Discharge Plan Condition: Guarded Disposition: HOME-RECOMMEND TO ED Patient Education Materials: Chest Pain (ED) Forms: COVID-19 Tested & Isolation Referrals: Roderick Gutierrez MD [Primary Care Provider] - Additional Instructions: Please immediately go to the Emergency Department. Stop and call 911 if any problems on the way. - Billing Disposition and Condition Condition: GUARDED Disposition: Home-Recommend to ED
[2019-12-29 12:24] VITALS: BP 170/80
== END 2019-12-29 12:29 | disposition home health service (06) ==
LOC: UCEAST 11:21
DX: R07.89 Other chest pain (principal); R06.02 Shortness of breath; Z20.828 Contact with and (suspected) exposure to other viral communicable diseases; Z79.82 Long term (current) use of aspirin; Z95.1 Presence of aortocoronary bypass graft; Z95.5 Presence of coronary angioplasty implant and graft; Z87.891 Personal history of nicotine dependence
CPT/HCPCS: 87635; 93005; 99213; G0463

== ENCOUNTER 2021-11-15 13:28 | Inpatient (IN) ==
[2021-11-15 15:41] LABS: ABS Basophils 0.1 10^3/ul (0-0.2); ABS Eosinophils 1.1 10^3/ul (0-0.6); ABS Lymphocytes 1.1 10^3/ul (1.0-4.8); ABS Monocytes 0.6 10^3/ul (0-0.8); ABS Neutrophils 5.7 10^3/ul (1.5-7.7); Eosinophil % 12.7 %; Hematocrit 41 % (42-52); Hemoglobin 13.5 g/dL (14.0-18.0); Lymphocyte % 12.8 %; Mean Corpuscular HGB Conc 33 g/dL (31-36); Mean Corpuscular Hemoglobin 28 pg (27-31); Mean Corpuscular Volume 86 fL (80-94); Mean Platelet Volume 8.1 fL (7.4-10.4); Platelet Count 252 10^3/uL (150-450); Red Blood Count 4.78 10^6 /uL (4.18-5.48); Red Cell Distribution Width 15 % (10-15); White Blood Count 8.6 10^3/uL (3.5-10.8)
[2021-11-15 16:03] LABS: Albumin 4.4 g/dL (3.2-5.2); Albumin/Globulin Ratio 1.4 (1-3); Calcium 9.5 mg/dL (8.6-10.3); Globulin 3.2 g/dL (2-4); Total Bilirubin 0.6 mg/dL (0.2-1.0); Total Protein 7.6 g/dL (6.4-8.9); eGFR CKD-EPI 78.4 (>60)
[2021-11-15] MEDS ORDERED: Heparin 5000 UNITS/ML 1 mL VIAL SUBCUT ONE (21:00)
[2021-11-16] MEDS ORDERED: NS 0.9% 1000 ml BAG 1,000 ML IV SCH ×2 (06:00→11:00)
[2021-11-16 06:13] LABS: Hematocrit 41 % (42-52); Hemoglobin 13.6 g/dL (14.0-18.0); Mean Corpuscular HGB Conc 33 g/dL (31-36); Mean Corpuscular Hemoglobin 28 pg (27-31); Mean Corpuscular Volume 86 fL (80-94); Mean Platelet Volume 8.1 fL (7.4-10.4); Platelet Count 239 10^3/uL (150-450); Red Blood Count 4.84 10^6 /uL (4.18-5.48); Red Cell Distribution Width 15 % (10-15); White Blood Count 7.7 10^3/uL (3.5-10.8)
[2021-11-16 06:30] LABS: Calcium 9.2 mg/dL (8.6-10.3); Potassium 3.8 mmol/L (3.5-5.0); eGFR CKD-EPI 80.4 (>60)
[2021-11-16 06:38] LABS: Activated Partial Thrombo Time 32.5 seconds (26.0-38.0); INR 1.01 (0.86-1.15)
[2021-11-16] MEDS ORDERED: Perflutren Lipid Microsphere 3 ML VIAL ONE (08:31)
[2021-11-16] MEDS ORDERED: Iohexol 350 (CONTRAST) 200 ML MDV IV ONE (08:33)
[2021-11-16] MEDS ORDERED: Midazolam 5 mg/5 ml VIAL 1 mg/ml 5 ml VIAL (5 mg) ONE (08:33)
[2021-11-16] MEDS ORDERED: Heparin 1,000 UNIT/ML 10 ml (10,000 UNITS) CATHLAB/DIALYSIS ONE (08:33)
[2021-11-16] MEDS ORDERED: niCARdipine 0.1MG/ML IVPREMIX 20 MG/200 ML BAG IV ONE (08:33)
[2021-11-16] MEDS ORDERED: fentaNYL 100 mcg/2 ml 50 MCG/ML VIAL ONE (08:33)
[2021-11-16] MEDS ORDERED: nitroGLYCERIN DRIP 25,000 MCG/250 ML BTL ONE (08:33)
[2021-11-16] MEDS ORDERED: Heparin 2 UNITS/ML 1000 mls 2,000 ML IV ONE (08:33)
[2021-11-16] MEDS ORDERED: Lidocaine 1% VIAL 10 MG/ML VIAL ONE (08:33)
[2021-11-16 09:59] LABS: POC SO2 97 %
[2021-11-16 09:59] LABS: POC SO2 67 %
[2021-11-16] MEDS ORDERED: Isosorbide Mononit ER 30mg TAB PO SCH (21:00)
[2021-11-17 06:34] LABS: Calcium 9.1 mg/dL (8.6-10.3); eGFR CKD-EPI 66.1 (>60)
[2021-11-17 12:36] VITALS: BP 134/62
== END 2021-11-17 13:15 | disposition home or self-care (01) | DRG 287 ==
LOC: ED 13:28 → EDHOLD 18:23 → SUATTDRO 18:23 → MEDTELE 21:19
PROVIDERS: ADMIT Internal Medicine; ATTEND Internal Medicine